=== PATIENT | female | born 1940 | race Caucasian/White ===

== ENCOUNTER 2022-11-22 18:38 | Inpatient (IN) | payer OTHER, SELFPAY ==
[2022-11-22 18:39] VITALS: BP 154/86; PULSE 84; RESP 16; TEMP 36.6; O2SAT 96; BMI 27.5
[2022-11-22 19:08] LABS: Absolute Lymphocyte Count 2.73 X10^3/uL (0.83-4.51); Absolute Neutrophil Count 6.4 X10^3/uL (2.0-7.7); Basophil# 0.05 X10^3/uL; Basophil% 0.5 % (0-1); Eosinophil# 0.11 X10^3/uL; Eosinophils% 1.1 % (0-5); Hematocrit 39.6 % (37-47); Hemoglobin 12.9 g/dL (12.0-15.0); Lymphocyte # 2.73 X10^3/ul (0.83-4.51); Lymphocyte % 27.5 % (19-41); Mean Corp Hgb Conc 32.6 g/dL (32-36); Mean Corpuscular Hgb 31.5 pg (27.0-32.0); Mean Corpuscular Volume 96.8 fL (81-99); Mean Platelet Vol. 9.3 fl (6.2-12.0); Monocyte# 0.63 X10^3/uL; Monocyte% 6.4 % (0-10); NRBC Flagged by Analyzer 0 % (0-5); Neutrophil # 6.37 X10^3/uL (2.7-7.7); Neutrophil % 64.3 % (47-70); Platelet Count 351 K/mm3 (150-450); RBC Distribution Width CV 12.7 % (11.6-14.6); RBC Distribution Width SD 45.2 fl (35.1-43.9); Red Blood Count 4.09 M/mm3 (4.2-5.4); White Blood Count 9.9 K/mm3 (4.4-11.0)
[2022-11-22 19:09] LABS: Bacteria 0 SEEN /hpf (None Seen); Mucous, Urine 0 SEEN /hpf (<or=2+); Red Blood Cells-Urine 0 SEEN /hpf (0-5)
[2022-11-22 19:10] LABS: Color, Urine Yellow (Yellow); Glucose, Dipstick Normal (Normal); Ketone-Dipstick Negative (Negative); Leukocyte Esterase-Dipstick 500 /ul (Negative); Nitrite-Dipstick Negative (Negative); Occult Blood-Urine 10 /ul (Negative); Protein-Dipstick Negative (Negative); Urine Bilirubin Dipstick Negative (Negative); Urine Clarity Clear (Clear); Urine Urobilinogen Normal (Normal); Urine pH 6.5 (5.0 - 8.0)
[2022-11-22 19:17] LABS: Squamous Epithelial Cells - UA 0-5 SEEN /hpf (5-10); White Blood Cells 10-25 SEEN /hpf (0-5)
[2022-11-22 19:20] LABS: Anion Gap 5 (5-15); BUN 17 mg/dL (7-18); Chloride 108 mmol/L (98-107); Creatinine, Serum 0.85 mg/dL (0.55-1.02); EST Glomerular Filtration Rate 68 mL/min (>60); Est Glom Filt Rate - Afr Amer 83 mL/min (>60); Estimated Creatinine Clearance 41.75 ml/min; Glucose 125 mg/dL (74-106); Potassium 4.2 mmol/L (3.5-5.1); Sodium Level 141 mmol/L (136-145)
--- NOTE | 2022-11-22 20:38 | CT_ITS ---
STUDY: CT Abdomen And Pelvis W/ Contrast Injection 11/22/2022 9:21 PM REASON FOR EXAM: Female, 82 years old. LOW ABD PAIN X SEVERAL MONTHS BUT WORSE PAST 3 DAYS,NAUSEA,INTERMITTENT DIARRHEA AND CONSTIPATION HX:COLON CANCER WITH PATIAL COLECTOMY pain pain Individualized dose optimization techniques were used for this CT. COMPARISON: None. TECHNIQUE: CT Abdomen And Pelvis W/ Contrast Injection IV 100mL [id number] FINDINGS: There are atherosclerotic calcifications of visualized coronary arteries. The visualized portions of the heart are within normal limits. Normal liver. There are surgical clips in the gallbladder fossa consistent with a prior cholecystectomy. There is dilation of the common bile duct. A common bile duct stone is not seen. The CBD diameter is 11 mm. Normal spleen. Normal pancreas. Normal bilateral adrenal glands. There are hypodensities in the right kidney. These are consistent for cysts. No follow up required. There are hypodensities in the left kidney. These are consistent for cysts. No follow up required. Normal visualized stomach. There are dilated loops of the small intestine with a non-distended colon consistent with air fluid levels suggesting a partial small bowel obstruction. Colectomy with anastomosis of the mid transverse colon. There is non-visualization of the appendix. Free fluid along the right side of the abdomen. Mass likely thickening of the proximal ascending colon may be a colitis. However, neoplasm should also be considered. This appears to be causing a partial small bowel obstruction. Se 2 IM: 62. There are calcifications of the abdominal aorta. This is consistent for atherosclerotic disease. There is NO abdominal aortic aneurysm. Vascular workup can be obtained based on clinical correlation. Normal inferior vena cava. Subcentimeter mesenteric lymph nodes. Normal urinary bladder. Normal abdominal wall. There are diffuse degenerative changes of the visualized lumbar spine. Degenerative findings of the hips. CT/Abdomen/Pelvis W IV Cont ONLY IMPRESSION: (NOT LISTED IN ORDER OF SIGNIFICANCE) Mass likely thickening of the proximal ascending colon may be a colitis. However, neoplasm should also be considered. This appears to be causing a partial small bowel obstruction. Colonoscopy is recommended. Other findings as above. Electronically Signed: Refugio Carbajal MD at 21:27 EST ,
--- NOTE | 2022-11-22 20:39 | EDS_ITS ---
HPI HPI - GI History of Present Illness Chief Complaint: Abd Pain Informant: patient and family Narrative Narrative: Presents with family with abdominal cramping for the past 3 days with, and spasms. 5 days over the weekend had nausea and vomiting that has resolved. 2 bowel movements a day nonbloody. History of partial colectomy June 2021 for cancer. No chemo. This was done in [place] by Dr. Gongora. Denies urinary symptoms. Denies fevers. Patient's been tolerating oral fluids. Further history, had a colonoscopy in 2019 that was reported normal. Reported she had a partial small bowel obstruction June 2021, attempted colonoscopy at that time unable to pass through therefore surgical resection was performed. They referred to Dr. Manning, reports last seen June of last year. Reported the cancer blood work was elevated, however image studies were negative. Was told if she develops pain and vomiting that cancer could return. Prior similar symptoms: Yes PFSH PFSH Home Medications alprazolam 0.5 mg tablet (Xanax) 0.5 mg PO QHS PRN Anxiety 11/22/22 [History Last Taken Unknown] lithium carbonate 450 mg tablet,extended release 450 mg PO DAILY 11/22/22 [History Last Taken Unknown] Allergy/AdvReac Type Severity Reaction Status Date / Time No Known Allergies Allergy Verified 11/22/22 18:43 Social History Smoking Status: Never smoker ROS ROS ED Constitutional Constitutional ED: Denies chills, fever(s) or sweats Eyes Eyes: Denies change in vision ENT ENT ED: Denies dysphagia or sore throat Cardiovascular Cardiovascular: Denies chest pain, leg edema, palpitations or racing heartbeat Respiratory/Chest Respiratory/Chest: Denies cough, dyspnea or dyspnea on exertion Gastrointestinal Gastrointestinal: Reports abdominal pain; Denies diarrhea, nausea or vomiting Genitourinary Genitourinary ED: Denies dysuria, hematuria or urinary frequency Musculoskeletal Musculoskeletal: Denies back pain, extremity pain or neck pain Integumentary Denies rash or wounds Neurologic Neurologic: Denies headache(s), paresthesias or weakness EXAM Physical Exam Const Vital Signs: 11/22/22 18:39 11/22/22 22:57 11/22/22 23:11 Temperature 98 F 97.9 F Temperature Source Temporal Temporal Pulse Rate 84 73 78 Respiratory Rate 16 16 18 Blood Pressure 154/86 H 175/87 H 161/62 H Blood Pressure Mean 108 116 95 Pulse Ox 96 92 94 Oxygen Delivery Method Room Air Room Air Room Air Positive well nourished and well developed General Appearance ED: well developed and NAD HEENT Reports moist mucous membranes normocephalic and atraumatic Eyes PERRL, EOMs intact bilaterally and conjunctivae normal General Eye ED: Yes normal appearance of both eyes Neck no lymphadenopathy and supple General: Negative for tenderness Chest Wall Chest: Negative for tenderness Resp normal respiratory effort and normal air movement Effort and Inspection: symmetric chest movement; Negative for respiratory distress Cardio regular rate, regular rhythm and no murmurs Peripheral Pulses: pulses 2+ throughout GI normal to inspection, nondistended, normoactive bowel sounds GI Narrative: Mid abdominal tenderness no rebound guarding healed midline lower abdominal scar. Palpation: Negative for guarding or rebound tenderness present Back/Spine no CVA tenderness and no thoracic nor lumbar tenderness Extremity normal to inspection General Extremety ED: Negative for edema or tenderness General Extremity: Negative for edema Neuro oriented x3 and no sensory deficits noted Sensorium / Orientation: awake and alert Skin no rashes or lesions noted and no wounds MDM MDM MDM Narrative Medical decision making narrative: Interventions / MDM: Differential diagnosis: Bowel obstruction, appendicitis, colitis, cancer Diagnosis considered but do not suspect: N/A My EKG interpretation: N/A Imaging independently reviewed and interpreted by myself: CT abdomen pelvis IV contrast transfer partial small bowel obstruction there is thickening in the ascending colon. Per radiology colitis versus cancers. KUB: NG in the stomach region. External documents reviewed: N/A Test considered but not ordered:N/A ED course: Patient declines any pain medicines IV fluids were started. Abdominal labs were normal all. Urine noted leukocytes and white blood cells however she denies any symptoms for UTI urine culture sent. CT scan results concerning for partial small bowel obstruction with colitis versus cancer. She denies fevers. Further discussion with the patient and family she vomited over the weekend she has not eaten much she had a small bowel movement Sunday however his symptoms continued therefore decreased oral intake. With her medical history elevated cancer cells on follow-up, more likely concerns for recurrent cancer causing her small bowel obstruction. I did discuss with on-call surgeon Dr. Jimenez, discussed with him, we will add a CEA level to blood work. He will see the patient in the ED and likely will need admission with colonoscopy. Patient admitted surgery service, discussed with hospitalist, Dr. Falcon for consult for surgery for inpatient managment. Re-evaluation: stable Disposition discussed with patient/family/significant other: Case discussed with consulting clinician: Surgery, Dr. Jimenez, Hospitalist, Dr. Falcon History & Record Review Discussion w/independent historian: Other (Family) Lab Data Attestation: I reviewed the patient's lab results. Labs: Laboratory Results - last 24 hr 11/22/22 11/22/22 11/22/22 18:55 18:55 18:55 WBC 9.9 RBC 4.09 L Hgb 12.9 Hct 39.6 MCV 96.8 MCH 31.5 MCHC 32.6 RDW Std Deviation 45.2 H RDW Coeff of Kobe 12.7 Plt Count 351 MPV 9.3 Immature Gran % (Auto) 0.200 Neut % (Auto) 64.3 Lymph % (Auto) 27.5 [place] % (Auto) 6.4 Eos % (Auto) 1.1 Baso % (Auto) 0.5 Absolute Neuts (auto) 6.4 Absolute Lymphs (auto) 2.73 Nucleated RBC % 0 Sodium 141 Potassium 4.2 Chloride 108 H Carbon Dioxide 28.0 Anion Gap 5 BUN 17 Creatinine 0.85 Estim Creat Clear Calc 41.75 Est GFR (MDRD) Af Amer 83 Est GFR (MDRD) Non-Af 68 BUN/Creatinine Ratio 20.0 Glucose 125 H Calcium 10.0 Total Bilirubin Direct Bilirubin AST ALT Alkaline Phosphatase Total Protein Albumin Globulin Lipase Urine Color Yellow Urine Clarity Clear Urine pH 6.5 Ur Specific [place] 1.010 Urine Protein Negative Urine Glucose (UA) Normal Urine Ketones Negative Urine Occult Blood 10 H Urine Nitrite Negative Urine Bilirubin Negative Urine Urobilinogen Normal Ur Leukocyte Esterase 500 H Urine RBC 0 SEEN Urine WBC 10-25 SEEN Ur Squamous Epith Cells 0-5 SEEN Urine Bacteria 0 SEEN Urine Mucus 0 SEEN 11/22/22 18:55 WBC RBC Hgb Hct MCV MCH MCHC RDW Std Deviation RDW Coeff of Kobe Plt Count MPV Immature Gran % (Auto) Neut % (Auto) Lymph % (Auto) [place] % (Auto) Eos % (Auto) Baso % (Auto) Absolute Neuts (auto) Absolute Lymphs (auto) Nucleated RBC % Sodium Potassium Chloride Carbon Dioxide Anion Gap BUN Creatinine Estim Creat Clear Calc Est GFR (MDRD) Af Amer Est GFR (MDRD) Non-Af BUN/Creatinine Ratio Glucose Calcium Total Bilirubin 0.30 Direct Bilirubin 0.12 AST 27 ALT 28 Alkaline Phosphatase 95 Total Protein 7.3 Albumin 3.6 Globulin 3.7 Lipase 96 Urine Color Urine Clarity Urine pH Ur Specific [place] Urine Protein Urine Glucose (UA) Urine Ketones Urine Occult Blood Urine Nitrite Urine Bilirubin Urine Urobilinogen Ur Leukocyte Esterase Urine RBC Urine WBC Ur Squamous Epith Cells Urine Bacteria Urine Mucus Radiography Diagnostic Testing: Clinical Impression(s) from Imaging Studies Abdomen/Pelvis CT 11/22/22 20:38 IMPRESSION: (NOT LISTED IN ORDER OF SIGNIFICANCE) Mass likely thickening of the proximal ascending colon may be a colitis. However, neoplasm should also be considered. This appears to be causing a partial small bowel obstruction. Colonoscopy is recommended. Other findings as above. Electronically Signed: Refugio Carbajal MD at 21:27 EST , KUB X-Ray 11/22/22 22:55 IMPRESSION: NG tube is in good position the stomach. Electronically Signed: Alhaji Gonzalez MD at 23:14 EST , Discharge Plan Dx/Rx/DC Orders Clinical Impression: Partial small bowel obstruction, Abdominal pain, History of colon cancer Disposition Disposition: Acute Care Hospital [facility]
[2022-11-22] MEDS: 0.9% Normal Saline 1,000 ML 1000 ML IV (20:53)
[2022-11-22 21:00] LABS: AST(SGOT) 27 U/L (15-37); Alanine Aminotransfer ALT/SGPT 28 U/L (13-56); Albumin, Serum 3.6 g/dL (3.2-5.0); Alkaline Phosphatase 95 U/L (45-117); Bilirubin, Direct 0.12 mg/dL (0.00-0.30); Globulin 3.7 g/dL (2.2-4.2); Lipase 96 U/L (73-393); Protein, Total 7.3 g/dL (6.4-8.2)
[2022-11-22] MEDS: Hyoscyamine Sulfate 0.125 MG Tablet SL (21:31)
--- NOTE | 2022-11-22 22:55 | RAD_ITS ---
EXAM: XR ABDOMEN, 1 VIEW CLINICAL INDICATION: NG Insertion TECHNIQUE: Frontal supine view of the abdomen/pelvis. This report was created using [employer] report generation technology. COMPARISON: 11/06/2022. FINDINGS: LOWER THORAX: No acute pathology. GASTROINTESTINAL TRACT: Unremarkable. Non-obstructive. No bowel or stomach distention. ORGANS: Unremarkable as visualized. No organomegaly. No abnormal calcifications. BONES/JOINTS: No acute pathology. SOFT TISSUES: No acute pathology. TUBES, LINES AND DEVICES: NG tube is in good position the stomach. RAD/Abdomen Single View (Portable) IMPRESSION: NG tube is in good position the stomach. Electronically Signed: Alhaji Gonzalez MD at 23:14 EST ,
[2022-11-22 22:57] VITALS: BP 175/87; PULSE 73; RESP 16; O2SAT 92
[2022-11-22 23:11] VITALS: BP 161/62; PULSE 78; RESP 18; TEMP 36.6; O2SAT 94
[2022-11-23] VITALS (7 sets, daily range): BP systolic 135–166; BP diastolic 70–91; PULSE 66–94; RESP 16–18; TEMP 36.4–36.8; O2SAT 94–98; BMI 27.2
--- NOTE | 2022-11-23 00:03 | PCM.HP.STD ---
[facility] - [facility] General Date of Service: 11/23/22 Chief Complaint: Abdominal pain associated nausea and vomiting [facility] Narrative JAAY HAZEL, is a 82 F who presents to [facility] with her family with complaints of several months of abdominal pain, gradual loss of appetite, and nausea and vomiting beginning 11/18/2022. History is provided mostly by patient's children. They state that their mother, in addition to the above symptoms, was not able to have a bowel movement over the weekend and then had worsening pain on 11/20/2022, but was able to experience a bowel movement. They report that her bowel movements have covered the spectrum between constipation, normal, and loose. With the recurrence of her pain, nausea, and vomiting today they decided to seek evaluation. ER work-up was notable for normal CBC, but CT imaging showed evidence of partial small bowel obstruction with thickening of the ascending colon concerning for possible mass. Patient has a history of a left colon mass that was diagnosed after obstructive symptoms approximately 1 year following a screening colonoscopy with Dr. Gongora at [facility]. According to family patient underwent a 7-hour surgery during which a segmental colectomy was performed, but only after several hours of removing scar tissue. Patient repeatedly reports that she recovered quickly and family concur with this assessment. Family states they were told this was either a stage IV or a stage IIId cancer as they report being told different stages by different providers. Family confirms that they were told cancer had spread to the adjacent lymph nodes. With this pathology report, the followed up with Dr. Geronimo of oncology and began an oral chemo regimen, but patient quickly declared intolerance and declined any further treatments. Family recalls being told by Dr. Geronimo that they should be watchful for recurrence which would present as new abdominal pain, nausea, and vomiting. Patient's son states that when she had her recent symptoms he is fearful for this recurrence. Past surgical history includes hysterectomy and oophorectomy, subsequent scar tissue removal, appendectomy, open cholecystectomy, and left segmental colectomy described above. PFSH Home Medications alprazolam 0.5 mg tablet (Xanax) 0.5 mg PO QHS PRN Anxiety 11/22/22 [History Last Taken Unknown] lithium carbonate 450 mg tablet,extended release 450 mg PO DAILY 11/22/22 [History Last Taken Unknown] Allergy/AdvReac Type Severity Reaction Status Date / Time No Known Allergies Allergy Verified 11/22/22 18:43 Social History Smoking Status: Never smoker ROS Constitutional Constitutional: Reports anorexia and weight loss Gastrointestinal Gastrointestinal: Reports abdominal pain, diarrhea, nausea and vomiting; Denies hematochezia or melena Vital Signs Vital Signs Vital Signs: 11/22/22 18:39 11/22/22 22:57 11/22/22 23:11 Temperature 98 F 97.9 F Temperature Source Temporal Temporal Pulse Rate 84 73 78 Respiratory Rate 16 16 18 Blood Pressure 154/86 H 175/87 H 161/62 H Blood Pressure Mean 108 116 95 Pulse Ox 96 92 94 Oxygen Delivery Method Room Air Room Air Room Air Weight Weight: 150 lb 6 oz Body Mass Index (BMI) 27.5 Physical Exam Const alert and oriented x3 Constitutional Narrative: Mild distress when talking about possible cancer recurrence General Appearance: cooperative Resp normal respiratory effort GI GI Narrative: Mild abdominal distention. Well-healed laparotomy incision. Well-healed subcostal incision from open cholecystectomy. Well-healed port site versus drain site incisions in bilateral upper abdominal quadrants. Mildly tender to palpation in the right abdomen. Nasogastric tube with small volume bilious aspirate. Results Lab / Micro Data Result Diagrams: 11/22/22 18:55 11/22/22 18:55 Labs: Laboratory Results - last 24 hr 11/22/22 18:55: WBC 9.9, RBC 4.09 L, Hgb 12.9, Hct 39.6, MCV 96.8, MCH 31.5, MCHC 32.6, RDW Std Deviation 45.2 H, RDW Coeff of Kobe 12.7, Plt Count 351, MPV 9.3, Immature Gran % (Auto) 0.200, Neut % (Auto) 64.3, Lymph % (Auto) 27.5, [place] % (Auto) 6.4, Eos % (Auto) 1.1, Baso % (Auto) 0.5, Absolute Neuts (auto) 6.4, Absolute Lymphs (auto) 2.73, Nucleated RBC % 0 11/22/22 18:55: Sodium 141, Potassium 4.2, Chloride 108 H, Carbon Dioxide 28.0, Anion Gap 5, BUN 17, Creatinine 0.85, Estim Creat Clear Calc 41.75, Est GFR (MDRD) Af Amer 83, Est GFR (MDRD) Non-Af 68, BUN/Creatinine Ratio 20.0, Glucose 125 H, Calcium 10.0 11/22/22 18:55: Urine Color Yellow, Urine Clarity Clear, Urine pH 6.5, Ur Specific [place] 1.010, Urine Protein Negative, Urine Glucose (UA) Normal, Urine Ketones Negative, Urine Occult Blood 10 H, Urine Nitrite Negative, Urine Bilirubin Negative, Urine Urobilinogen Normal, Ur Leukocyte Esterase 500 H, Urine RBC 0 SEEN, Urine WBC 10-25 SEEN, Ur Squamous Epith Cells 0-5 SEEN, Urine Bacteria 0 SEEN, Urine Mucus 0 SEEN 11/22/22 18:55: Total Bilirubin 0.30, Direct Bilirubin 0.12, AST 27, ALT 28, Alkaline Phosphatase 95, Total Protein 7.3, Albumin 3.6, Globulin 3.7, Lipase 96 Radiology Impression Abdomen/Pelvis CT 11/22/22 20:38 IMPRESSION: (NOT LISTED IN ORDER OF SIGNIFICANCE) Mass likely thickening of the proximal ascending colon may be a colitis. However, neoplasm should also be considered. This appears to be causing a partial small bowel obstruction. Colonoscopy is recommended. Other findings as above. Electronically Signed: Refugio Carbajal MD at 21:27 EST , KUB X-Ray 11/22/22 22:55 IMPRESSION: NG tube is in good position the stomach. Electronically Signed: Alhaji Gonzalez MD at 23:14 EST , Assessment & Plan Assessment/Plan (1) Partial small bowel obstruction: (2) History of colon cancer: (3) Abnormal CT scan, colon: PLAN: Plan This is an 82-year-old female who presents with several months of progressive abdominal pain and newly associated nausea, vomiting, and periods of obstipation in the context of prior left segmental colectomy in June 2021 for colon cancer?stage III adenocarcinoma. Patient reportedly initiated oral chemotherapy, but declined further treatments due to intolerance. Family reports that conversations were held with oncology that recurrence was certainly a possibility and at that time they discussed patient would likely choose hospice if this transpired. According to patient's ER work-up, CT imaging suggests possible neoplastic process within the ascending colon secondarily causing a partial small bowel obstruction. I held a lengthy conversation with patient and the family regarding the current situation and the treatment options available. I discussed my reservations about considering further surgery given their reports of a lengthy surgery 2 years ago and now facing a high probability of metastatic cancer after adjuvant therapy was previously declined. Patient suggests that they are concerned about their quality of life and would definitely choose further surgery if they could be guaranteed that their pain would be improved in the long run. I have shared with her that no such guarantees could be made. I have shared with family that surgical options could potentially include resection and reanastomosis versus diversion with ileostomy. I have shared the drawbacks of each. I have discussed that there would be no way of projecting how long patient may have until a potential future recurrence. At this time we have deferred further decisions until the remainder of the family can gather for a conversation about patient's care. Family also suggest that they would be very interested in possibility of a colonoscopy to have a diagnosis on which to base their decision. Neuro: As needed Dilaudid Pulm/CV: Incentive spirometer, aspiration precautions, as needed hydralazine FEN/GI: Monitor daily electrolytes, n.p.o. with NG tube to low intermittent wall suction, tentatively plan for consult to gastroenterology, follow-up CEA level : Leukocyte esterase elevated, but other UA findings not suggestive Heme/ID: No signs of anemia or infection per CBC Endo: No current issues Proph: SCDs and patient should be encouraged to ambulate Dispo: Admit to inpatient with hospitalist consult given patient's age, comorbidities, and potential need for end-of-life care planning
[2022-11-23 00:41] LABS: Magnesium 2.1 mg/dL (1.6-2.6); Phosphorus 3.4 mg/dL (2.5-4.9)
--- NOTE | 2022-11-23 00:55 | PCM.PN.HOSP ---
Reason for Visit Reason for Visit: Diagnoses Partial intestinal obstruction, unspecified as to cause (11/23/22) Abnormal findings on diagnostic imaging of other parts of digestive tract (11/23/22) Personal history of other malignant neoplasm of large intestine (11/23/22) Subjective Subjective Patient is a 89-year-old female with a significant history of bipolar disorder; and left-sided colon cancer status post colectomy who presents emergency department with right lower quadrant pain. Her pain has been on and off for about 2 weeks. Her pain is been progressively worsening. Her pain radiates to her entire abdomen. Associated with her symptoms is nausea and vomiting. Initially patient's was constipated but on the day of presentation patient had 3 bowel movements. Her bowel movements got looser in the course of the day. At the emergency department she had very loose bowel movements. In regard to her left-sided colon cancer patient was referred to Dr. Manning, oncologist for further management. Reportedly refused a chemotherapy . Internal medicine service has been consulted for medical management which includes elevated blood pressure on this presentation. Past surgical history: Colectomy Past Social History: Never smoker. Does not drink alcohol. Family Hx: Cancer Objective Data Objective Data Vital Signs: Vital Signs Temp Pulse Resp BP Pulse Ox O2 Del Method 97.9 F 78 16 161/62 H 94 Room Air 11/22/22 23:11 11/22/22 23:11 11/23/22 00:13 11/22/22 23:11 11/22/22 23:11 11/22/22 23:11 Oxygen Delivery Method Room Air Weight: 68.209 kg Body Mass Index (BMI) 27.5 Intake & Output: Intake and Output for Last 24 Hours 11/21/22 11/22/22 11/23/22 23:59 23:59 23:59 Intake Total 1000 / 1000 Balance 1000 / 1000 Lab / Micro Data Result Diagrams: 11/22/22 18:55 11/22/22 18:55 Labs: Laboratory Results - last 24 hr 11/22/22 18:55: WBC 9.9, RBC 4.09 L, Hgb 12.9, Hct 39.6, MCV 96.8, MCH 31.5, MCHC 32.6, RDW Std Deviation 45.2 H, RDW Coeff of Kobe 12.7, Plt Count 351, MPV 9.3, Immature Gran % (Auto) 0.200, Neut % (Auto) 64.3, Lymph % (Auto) 27.5, [place] % (Auto) 6.4, Eos % (Auto) 1.1, Baso % (Auto) 0.5, Absolute Neuts (auto) 6.4, Absolute Lymphs (auto) 2.73, Nucleated RBC % 0 11/22/22 18:55: Sodium 141, Potassium 4.2, Chloride 108 H, Carbon Dioxide 28.0, Anion Gap 5, BUN 17, Creatinine 0.85, Estim Creat Clear Calc 41.75, Est GFR (MDRD) Af Amer 83, Est GFR (MDRD) Non-Af 68, BUN/Creatinine Ratio 20.0, Glucose 125 H, Calcium 10.0 11/22/22 18:55: Urine Color Yellow, Urine Clarity Clear, Urine pH 6.5, Ur Specific [place] 1.010, Urine Protein Negative, Urine Glucose (UA) Normal, Urine Ketones Negative, Urine Occult Blood 10 H, Urine Nitrite Negative, Urine Bilirubin Negative, Urine Urobilinogen Normal, Ur Leukocyte Esterase 500 H, Urine RBC 0 SEEN, Urine WBC 10-25 SEEN, Ur Squamous Epith Cells 0-5 SEEN, Urine Bacteria 0 SEEN, Urine Mucus 0 SEEN 11/22/22 18:55: Total Bilirubin 0.30, Direct Bilirubin 0.12, AST 27, ALT 28, Alkaline Phosphatase 95, Total Protein 7.3, Albumin 3.6, Globulin 3.7, Lipase 96 11/22/22 18:55: Phosphorus 3.4, Magnesium 2.1 Radiography Diagnostic Testing: Radiology Impression Abdomen/Pelvis CT 11/22/22 20:38 IMPRESSION: (NOT LISTED IN ORDER OF SIGNIFICANCE) Mass likely thickening of the proximal ascending colon may be a colitis. However, neoplasm should also be considered. This appears to be causing a partial small bowel obstruction. Colonoscopy is recommended. Other findings as above. Electronically Signed: Refugio Carbajal MD at 21:27 EST , KUB X-Ray 11/22/22 22:55 IMPRESSION: NG tube is in good position the stomach. Electronically Signed: Alhaji Gonzalez MD at 23:14 EST , Physical Exam Narrative Physical exam: General: Well-nourished, well-developed. Head: Normocephalic, atraumatic, no tenderness Eyes: Vision is grossly intact. EOMI ENT: NG tube in place. No trauma, moist mucous membranes, no rhinorrhea Neck: Nontender, No thyromegaly. CVS: Regular rate and rhythm. S1-S2 present. No murmur, gallop or rub. Respiratory : clear to auscultation bilaterally, chest wall nontender, no wheezing Abdomen: Soft, nontender, nondistended, normal bowel sounds, no masses : Deferred Back: Nontender, no CVA tenderness, no midline spinal tenderness, deformities, step-offs Extremities: Nontender full range of motion, no trauma Skin: Normal color, no trauma, abrasions Neuro: Alert, oriented, cranial nerves II through XII grossly intact. Psychiatry: Normal mood. Normal affect. Not depressed. Not anxious. Assessment & Plan Assessment/Plan (1) Partial small bowel obstruction: (2) Elevated blood pressure reading: PLAN: Plan Abnormal CT scan/partial small bowel obstruction CT of the abdomen pelvis with masslike substance and multiple air-fluid levels. I agree with radiologist interpretation. Radiologist recommended colonoscopy. CBC and BMP is unremarkable. Management by general surgery. Bipolar disorder On home Xanax nightly as needed and lithium as needed. On hold as patient is n.p.o. Ativan nightly as needed ordered; and Ativan every 6 hours as needed ordered for anxiety. Elevated blood pressure the diagnosis of hypertension Pain may be contributing. Aggressive pain control. Hydralazine as needed ordered by general surgery, agrees. DVT prophylaxis SCDs ordered. Charges/Coding Visit Charges Inpatient E&M: 10432 Subs Hosp L2
[2022-11-23] MEDS: 0.9% Normal Saline 1,000 ML 125 ML IV ×4 (01:27→23:18)
[2022-11-23] MEDS: HYDROmorphone 0.5 MG/0.5 ML SYRINGE IV ×3 (01:32→20:48)
[2022-11-23] MEDS: 0.9% Saline Lock 10 ML Syringe IV ×2 (08:40→20:48)
--- NOTE | 2022-11-23 17:52 | CON.PCM.GI_ITS ---
HPI Consult Data Date of Consult: 11/23/22 HPI Narrative Reason for Consultation: Possible colon cancer HPI Narrative: JAYA HAZEL, is a 82 F who presented with family with abdominal cramping for the past 3 days with, and spasms.? She had been complaining of 5 days o nausea and vomiting that has resolved.? She did have 2 bowel movements a day nonbloody.? She has a history of partial colectomy June 2021 for cancer.? She could not tolerate chemotherapy this was done in [place] by Dr. Gongora.? Denies urinary symptoms.? Denies fevers.? Patient's been tolerating oral fluids. She had a colonoscopy in 2019 that was reported normal.? Reported she had a partial small bowel obstruction June 2021, attempted colonoscopy at that time unable to pass through therefore surgical resection was performed.? They referred to Dr. Manning, reports last seen June of last year.? Reported the cancer blood work was elevated, however image studies were negative.? Was told if she develops pain and vomiting that cancer could return. She presented here at [facility] on 11/22/2022 with a partial small bowel obstruction. CT scan of the abdomen pelvis shows some thickening in the right side of the colon along with a surgical anastomosis. Also was seen was a lot of stool throughout the colon. She had a NG tube placed and has been having low to mild output without any bowel movement. I was consulted for the evaluation of a possible right-sided colon cancer. [facility] Medical History (Updated 11/23/22 @ 02:[address] Johnnie Falcon MD) Adenocarcinoma Anxiety Home Medications alprazolam 0.5 mg tablet (Xanax) 0.5 mg PO QHS PRN Anxiety 11/22/22 [History Last Taken 11/21/22] lithium carbonate 450 mg tablet,extended release 450 mg PO QHS anxiety 11/22/22 [History Last Taken 11/21/22] Allergy/AdvReac Type Severity Reaction Status Date / Time No Known Allergies Allergy Verified 11/22/22 18:43 Surgical History (Updated 11/23/22 @ 01:14 by René Mac) History of appendectomy History of hysterectomy S/P cholecystectomy Social History Smoking Status: Never smoker ROS Constitutional Constitutional: Reports anorexia and weight loss Gastrointestinal Gastrointestinal: Reports abdominal pain, diarrhea, nausea and vomiting; Denies hematochezia or melena Physical Exam Narrative Physical exam: General: Well-nourished, well-developed. Head: Normocephalic, atraumatic, no tenderness Eyes: Vision is grossly intact. EOMI ENT: NG tube in place. No trauma, moist mucous membranes, no rhinorrhea Neck: Nontender, No thyromegaly. CVS: Regular rate and rhythm. S1-S2 present. No murmur, gallop or rub. Respiratory : clear to auscultation bilaterally, chest wall nontender, no wheezing Abdomen: Soft, nontender, nondistended, normal bowel sounds, no masses : Deferred Back: Nontender, no CVA tenderness, no midline spinal tenderness, deformities, step-offs Extremities: Nontender full range of motion, no trauma Skin: Normal color, no trauma, abrasions Neuro: Alert, oriented, cranial nerves II through XII grossly intact. Psychiatry: Normal mood. Normal affect. Not depressed. Not anxious. Lab / Micro Data Result Diagrams: 11/22/22 18:55 11/22/22 18:55 Labs: Laboratory Results - last 24 hr 11/22/22 18:55: WBC 9.9, RBC 4.09 L, Hgb 12.9, Hct 39.6, MCV 96.8, MCH 31.5, MCHC 32.6, RDW Std Deviation 45.2 H, RDW Coeff of Kobe 12.7, Plt Count 351, MPV 9.3, Immature Gran % (Auto) 0.200, Neut % (Auto) 64.3, Lymph % (Auto) 27.5, [place] % (Auto) 6.4, Eos % (Auto) 1.1, Baso % (Auto) 0.5, Absolute Neuts (auto) 6.4, Ab solute Lymphs (auto) 2.73, Nucleated RBC % 0 11/22/22 18:55: Sodium 141, Potassium 4.2, Chloride 108 H, Carbon Dioxide 28.0, Anion Gap 5, BUN 17, Creatinine 0.85, Estim Creat Clear Calc 41.75, Est GFR (MDRD) Af Amer 83, Est GFR (MDRD) Non-Af 68, BUN/Creatinine Ratio 20.0, Glucose 125 H, Calcium 10.0 11/22/22 18:55: Urine Color Yellow, Urine Clarity Clear, Urine pH 6.5, Ur Specific [place] 1.010, Urine Protein Negative, Urine Glucose (UA) Normal, Urine Ketones Negative, Urine Occult Blood 10 H, Urine Nitrite Negative, Urine Bilirubin Negative, Urine Urobilinogen Normal, Ur Leukocyte Esterase 500 H, Urine RBC 0 SEEN, Urine WBC 10-25 SEEN, Ur Squamous Epith Cells 0-5 SEEN, Urine Bacteria 0 SEEN, Urine Mucus 0 SEEN 11/22/22 18:55: Total Bilirubin 0.30, Direct Bilirubin 0.12, AST 27, ALT 28, Alkaline Phosphatase 95, Total Protein 7.3, Albumin 3.6, Globulin 3.7, Lipase 96 11/22/22 18:55: Phosphorus 3.4, Magnesium 2.1 Micro: Microbiology 11/22/22 18:55 Urine, Clean Catch Urine Culture - Final Mixed Gram Pos & Gram Neg Org Radiology Impression Abdomen/Pelvis CT 11/22/22 20:38 IMPRESSION: (NOT LISTED IN ORDER OF SIGNIFICANCE) Mass likely thickening of the proximal ascending colon may be a colitis. However, neoplasm should also be considered. This appears to be causing a partial small bowel obstruction. Colonoscopy is recommended. Other findings as above. Electronically Signed: Refugio Carbajal MD at 21:27 EST , KUB X-Ray 11/22/22 22:55 IMPRESSION: NG tube is in good position the stomach. Electronically Signed: Alhaji Gonzalez MD at 23:14 EST , Assessment & Plan Assessment/Plan (1) Partial small bowel obstruction: (2) Elevated blood pressure reading: PLAN: Plan Abnormal CT scan/partial small bowel obstruction CT of the abdomen pelvis with masslike substance and multiple air-fluid levels. Radiologist recommended colonoscopy. CBC and BMP is unremarkable. Recommend to continue enemas as much as possible and we will attempt colonoscopy without the use of a prep due to a possible high-grade small bowel obstruction. Charges/Coding Visit Charges Inpatient E&M: 14794 Init Hosp L2
--- NOTE | 2022-11-23 18:19 | CASEMGMT ---
RN CM NOTE: Initial RN CM assessment deferred at this time, as pt/family discussing possible Hospice. Cleo COVARRUBIASN RN CM
[2022-11-23] MEDS: Electrolyte Solution/Peg's 4000 ML 1000 ML NG (18:20)
[2022-11-24] VITALS (9 sets, daily range): BP systolic 133–166; BP diastolic 64–95; PULSE 82–102; RESP 16–18; TEMP 36.5–37.3; O2SAT 92–97
[2022-11-24] MEDS: 0.9% Saline Lock 10 ML Syringe IV (03:46)
[2022-11-24] MEDS: HYDROmorphone 0.5 MG/0.5 ML SYRINGE IV ×3 (03:46→19:45)
--- NOTE | 2022-11-24 06:00 | EKG12_ITS ---
Test Reason : PRE OP Blood Pressure : / mmHG Vent. Rate : 074 BPM Atrial Rate : 074 BPM P-R Int : 162 ms QRS Dur : 086 ms QT Int : 404 ms P-R-T Axes : 069 021 052 degrees QTc Int : 448 ms Normal sinus rhythm Normal ECG No previous ECGs available Confirmed by GURJIT BLAIR, DUKE ([id number]), videotape editor FELIBERTO GALVEZ ([id number]) on 11/28/2022 8:03:41 AM Referred By: AMBREEN Confirmed By:DUKE CAGLE MD
[2022-11-24] MEDS: 0.9% Normal Saline 1,000 ML 125 ML IV ×2 (06:06→14:02)
[2022-11-24 06:54] LABS: Absolute Lymphocyte Count 1.53 X10^3/uL (0.83-4.51); Absolute Neutrophil Count 8.8 X10^3/uL (2.0-7.7); Basophil# 0.05 X10^3/uL; Basophil% 0.4 % (0-1); Eosinophil# 0.05 X10^3/uL; Eosinophils% 0.4 % (0-5); Hematocrit 37.1 % (37-47); Hemoglobin 11.6 g/dL (12.0-15.0); Lymphocyte # 1.53 X10^3/ul (0.83-4.51); Lymphocyte % 13.4 % (19-41); Mean Corp Hgb Conc 31.3 g/dL (32-36); Mean Corpuscular Hgb 30.9 pg (27.0-32.0); Mean Corpuscular Volume 98.7 fL (81-99); Mean Platelet Vol. 9.4 fl (6.2-12.0); Monocyte# 0.96 X10^3/uL; Monocyte% 8.4 % (0-10); NRBC Flagged by Analyzer 0 % (0-5); Neutrophil # 8.82 X10^3/uL (2.7-7.7); Neutrophil % 77.1 % (47-70); Platelet Count 294 K/mm3 (150-450); RBC Distribution Width CV 12.8 % (11.6-14.6); Red Blood Count 3.76 M/mm3 (4.2-5.4); White Blood Count 11.4 K/mm3 (4.4-11.0)
[2022-11-24 07:24] LABS: Anion Gap 9 (5-15); BUN 13 mg/dL (7-18); BUN/Creat Ratio 22.1 RATIO (10-20); Calcium,Total 8.4 mg/dL (8.5-10.1); Chloride 111 mmol/L (98-107); Creatinine, Serum 0.59 mg/dL (0.55-1.02); EST Glomerular Filtration Rate 105 mL/min (>60); Est Glom Filt Rate - Afr Amer 127 mL/min (>60); Estimated Creatinine Clearance 35.49 ml/min; Glucose 67 mg/dL (74-106); Potassium 4.2 mmol/L (3.5-5.1); Sodium Level 142 mmol/L (136-145)
[2022-11-24 08:29] LABS: Carcinoembryonic Antigen 6.4 ng/mL (0.0-4.7)
--- NOTE | 2022-11-24 11:40 | CASEMGMT ---
DESTINY STORY Assessment: Face to Face with pt for initial transition planning/care coordination assessment. RN JEZ introduced self and role at [facility], pt voices understanding and consents to assessment. Pt is A/O x4 and answers all questions appropriately at this time. Pt sitting up in bed with NG in and multiple family members at bedside. Pt agreeable to assessment in presence of family. Care providers, pharmacy, and demographics verified/updated. Admitting Dx: partial sbo PCP:Cristian Specialists:rupali Manning Preferred Pharmacy: [facility] Retail Insurance: [employer] Prescription Benefit: no LNOK: Sivakumar and Malena Giron, son and dil Living Arrangements: Pt lives with son and dil above in a 3 story home with 3 steps to enter. Pt lives in a home that is connected to her son and dil's. Pt reports being I in ADL's and no use of AD. Pt denies concerns at home. 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 DME/HHC/SNF: Pt denies having any DME in the home, previous HHC or SNF stays. Pt states she is waiting to have an EGD. Will formulate plan after results of this. Pt states no further concerns/needs. CM to follow. Advised pt to ask CM if any further question/concerns/needs arise, voices understanding. Pt Goal: TBD Plan: TBD
--- NOTE | 2022-11-24 14:35 | NURSING ---
PT TO ENDO VIA BED
--- NOTE | 2022-11-24 16:38 | CT_ITS ---
EXAM: CT ABDOMEN AND PELVIS WITH INTRAVENOUS CONTRAST CLINICAL INDICATION: volvulus TECHNIQUE: Helically acquired images were obtained of the abdomen and pelvis with intravenous contrast. This CT exam was performed using one or more of the following dose reduction techniques: automated exposure control, adjustment of the mA and/or kV according to patient size, and/or use of iterative reconstruction technique. This report was created using [employer] report generation technology. CONTRAST: IV 100mL Isovue-370 COMPARISON: 11/22/2022 FINDINGS: LOWER THORAX: There is atelectasis or pneumonia in the right middle lobe. There is trace left basilar atelectasis. No cardiomegaly. No significant pericardial effusion. ABDOMEN: LIVER: Unremarkable. Homogeneous. No focal mass. GALLBLADDER AND BILE DUCTS: Unremarkable. No calcified gallstones. No gallbladder distention or wall edema. No intra- or extrahepatic biliary ductal dilation. PANCREAS: Unremarkable. No focal cystic or solid mass. SPLEEN: Unremarkable. Normal size without focal cystic or solid mass. ADRENALS: Unremarkable. No nodules. KIDNEYS AND URETERS: Unremarkable. Normal renal size and position. No hydronephrosis. STOMACH AND BOWEL: There is persistent thickening of the proximal colon which is unchanged and may represent focal colitis or mass lesion. No stomach or bowel distention. PELVIS: APPENDIX: No evidence of acute appendicitis. BLADDER: Unremarkable. REPRODUCTIVE: Unremarkable as visualized. No mass. ABDOMEN and PELVIS: INTRAPERITONEAL SPACE: There are dilated fluid-filled loops of small bowel which are not significantly changed from the reference examination. There is no free air identified. BONES/JOINTS: Unremarkable. No suspicious lytic or blastic abnormality. SOFT TISSUES: Unremarkable. No discrete abdominal or pelvic wall hernia. VASCULATURE: Unremarkable. Abdominal aorta is non-dilated. LYMPH NODES: Unremarkable. No enlarged lymph nodes. TUBES, LINES AND DEVICES: Nasogastric tube has been placed with the distal tip in the proximal stomach. CT/Abdomen/Pelvis W IV Cont ONLY IMPRESSION: Persistent dilated fluid-filled loops of small bowel which are not significantly changed perhaps minimally decreased from the reference exam. A nasogastric tube is in place with the distal tip in the stomach. There is persistent masslike thickening of the proximal colon which may be the point of obstruction. Persistent atelectasis or pneumonia in the right middle lobe. Overall there has been minimal change from the reference exam. There is no evidence of volvulus. Electronically Signed: Jos Aldana MD at 17:24 EST ,
--- NOTE | 2022-11-24 16:52 | OP.COLON_ITS ---
Patient Name: Lorri Giron Procedure Date: 11/24/2022 3:37 PM Date of : 1940 Age: 82 Procedure: Colonoscopy Indications: Personal history of malignant neoplasm of the colon, Abdominal pain in the right upper quadrant Providers: Avni Guerrero DO Patient Profile: This is an 82 year old female. Refer to note in patient chart for documentation of history and physical. Last Colonoscopy: within the past 3 months. Complications: No immediate complications. Procedure: Pre-Anesthesia Assessment: - Prior to the procedure, a History and Physical was performed, and patient medications and allergies were reviewed. The patient is competent. The risks and benefits of the procedure and the sedation options and risks were discussed with the patient. All questions were answered and informed consent was obtained. Patient identification and proposed procedure were verified by the physician in the pre-procedure area. Mental Status Examination: alert and oriented. Airway Examination: normal oropharyngeal airway and neck mobility. Respiratory Examination: clear to auscultation. CV Examination: normal. Prophylactic Antibiotics: The patient does not require prophylactic antibiotics. Prior Anticoagulants: The patient has taken no previous anticoagulant or antiplatelet agents. After reviewing the risks and benefits, the patient was deemed in satisfactory condition to undergo the procedure. The anesthesia plan was to use monitored anesthesia care (MAC). Immediately prior to administration of medications, the patient was re-assessed for adequacy to receive sedatives. The heart rate, respiratory rate, oxygen saturations, blood pressure, adequacy of pulmonary ventilation, and response to care were monitored throughout the procedure. The physical status of the patient was re-assessed after the procedure. After I obtained informed consent, the scope was passed under direct vision. Throughout the procedure, the patient's blood pressure, pulse, and oxygen saturations were monitored continuously. The pediatric colonoscope was introduced through the anus and advanced to the hepatic flexure. The colonoscopy was extremely difficult due to inadequate bowel prep and restricted mobility of the colon. The patient tolerated the procedure well. No bowel preparation was given prior to the procedure. No bowel preparation was given prior to the procedure. The quality of visualization was poor. Scope In: 3:49:26 PM Scope Withdrawal Time 0 hours 1 minute 47 seconds Scope Out: 4:13:55 PM Total Procedure Duration Time 0 hours 24 minutes 29 seconds Findings: There was evidence of a prior end-to-side colo-colonic anastomosis at the splenic flexure. This was patent and was characterized by healthy appearing mucosa. A suspected volvulus, with viable appearing mucosa, was found at the hepatic flexure. Impression: - Patent end-to-side colo-colonic anastomosis, characterized by healthy appearing mucosa. - Suspected volvulus. - No specimens collected. Recommendation: - [facility]. - NPO. - No recommendation at this time regarding repeat colonoscopy due to age. - Continue present medications. Procedure Code(s): --- Professional --- 40069, 53, Colonoscopy, flexible; diagnostic, including collection of specimen(s) by brushing or washing, when performed (separate procedure) CPT copyright 2017 [employer]. All rights reserved. The codes documented in this report are preliminary and upon audiology doctor review may be revised to meet current compliance requirements. Avni Guerrero DO 11/24/2022 4:52:33 PM This report has been signed electronically. Number of Addenda: 0 Note Initiated On: 11/24/2022 3:37 PM
--- NOTE | 2022-11-24 16:52 | OP.CCLET_ITS ---
11/24/2022 Marco Antonio Foster Re : Colonoscopy procedure for Lorri Giron Dear Cristian This procedure was performed on Thursday, November 24, 2022. My impressions and recommendations are as follows: Impressions : - Patent end-to-side colo-colonic anastomosis, characterized by healthy appearing mucosa. - Suspected volvulus. - No specimens collected. Recommendations : - [facility]. - NPO. - No recommendation at this time regarding repeat colonoscopy due to age. - Continue present medications. My findings are described in the full procedure note, which is enclosed. If I can be of further assistance, please feel free to contact me at . Sincerely, Avni Guerrero, 11/24/2022 4:52:33 PM This report has been signed electronically.
--- NOTE | 2022-11-24 17:22 | PCM.PN.SRG ---
Subjective Subjective Patient was seen and examined during AM rounds. Her daughter and [id number] are both present. They report that Ms. Giron was given a quarter of a GoLytely prep via her nasogastric tube and has had several bowel movements. She reports that these bowel movements are loose and primarily yellow in character with very little solid. She denies any significant abdominal pain. She denies any nausea or vomiting. Objective Data Objective Data Vital Signs: Vital Signs Temp Pulse Resp BP Pulse Ox O2 Del Method 97.8 F 86 16 149/71 H 96 Room Air 11/24/22 16:42 11/24/22 16:42 11/24/22 16:42 11/24/22 16:42 11/24/22 16:42 11/24/22 16:42 Oxygen Delivery Method Room Air Weight: 149 lb 0.52 oz Body Mass Index (BMI) 27.2 Intake & Output: Intake and Output for Last 24 Hours 11/22/22 11/23/22 11/24/22 23:59 23:59 23:59 Intake Total 1000 / 1000 2852.50 / 2852.50 Output Total 500 / 500 0 / 0 Balance 1000 / 1000 2352.50 / 2352.50 Lab / Micro Data Result Diagrams: 11/24/22 06:40 11/24/22 06:40 Labs: Laboratory Results - last 24 hr 11/22/22 22:44: Carcinoembryonic Ag 6.4 H 11/24/22 06:40: WBC 11.4 H, RBC 3.76 L, Hgb 11.6 L, Hct 37.1, MCV 98.7, MCH 30.9, MCHC 31.3 L, RDW Std Deviation 46.0 H, RDW Coeff of Kobe 12.8, Plt Count 294, MPV 9.4, Immature Gran % (Auto) 0.300, Neut % (Auto) 77.1 H, Lymph % (Auto) 13.4 L, [place] % (Auto) 8.4, Eos % (Auto) 0.4, Baso % (Auto) 0.4, Absolute Neuts (auto) 8.8 H, Absolute Lymphs (auto) 1.53, Nucleated RBC % 0 11/24/22 06:40: Sodium 142, Potassium 4.2, Chloride 111 H, Carbon Dioxide 22.0, Anion Gap 9, BUN 13, Creatinine 0.59, Estim Creat Clear Calc 35.49, Est GFR (MDRD) Af Amer 127, Est GFR (MDRD) Non-Af 105, BUN/Creatinine Ratio 22.1 H, Glucose 67 L, Calcium 8.4 L Micro: Microbiology 11/22/22 18:55 Urine, Clean Catch Urine Culture - Final Mixed Gram Pos & Gram Neg Org Physical Exam Const oriented x3 Constitutional Narrative: In good spirits, appreciative Resp normal respiratory effort GI GI Narrative: Mildly distended, very mildly tender to palpation over the right abdominal quadrants. Nasogastric tube in place with mild to moderate output of bilious fluid. Assessment & Plan Assessment/Plan (1) Partial small bowel obstruction: (2) History of colon cancer: (3) Abnormal CT scan, colon: PLAN: Plan This is an 82-year-old female who presents with several months of progressive abdominal pain and newly associated nausea, vomiting, and periods of obstipation in the context of prior left segmental colectomy in June 2021 for colon cancer?stage III adenocarcinoma. Patient reportedly initiated oral chemotherapy, but declined further treatments due to intolerance. Patient was given several enemas yesterday as well as a partial bowel prep with GoLytely via her nasogastric tube in an effort to promote visualization during planned colonoscopy with gastroenterology later today. She tolerated these interventions without issue. She also reports some passage of flatus with her bowel movements. She denies any significant nausea. This is in keeping with her diagnosis of a partial bowel obstruction. She does remain distended on exam. We will plan to await the results of today's endoscopy before making further treatment plans. Neuro: As needed Dilaudid Pulm/CV: Incentive spirometer, aspiration precautions, as needed hydralazine FEN/GI: Monitor daily electrolytes, n.p.o. with NG tube to low intermittent wall suction, awaiting results of colonoscopy with gastroenterology, follow-up CEA level : Leukocyte esterase elevated, but other UA findings not suggestive Heme/ID: No signs of anemia or infection per CBC Endo: No current issues Proph: SCDs and patient should be encouraged to ambulate Dispo: Continue inpatient stay Charges/Coding Visit Charges Inpatient E&M: 29523 Subs Hosp L2
[2022-11-24] MEDS: Dextrose 5%/0.9% NaCl 1,000 ML 75 ML IV (18:10)
--- NOTE | 2022-11-24 19:48 | NURSING ---
This RN called Naldo in pharmacy. Naldo states Cipro and flagyl are compatible with D5NS.
[2022-11-24] MEDS: Ciprofloxacin 400 MG/200 ML BAG 200 MG IV (20:33)
[2022-11-24] MEDS: metroNIDAZOLE 500 MG/100 ML BAG 100 MG IV (22:08)
[2022-11-24 22:35] LABS: Bedside Glucose 124 mg/dL (74-106)
[2022-11-25] MEDS: Ondansetron 4 MG/2 ML Vial IV (02:30)
[2022-11-25 04:45] VITALS: BP 140/67; PULSE 82; RESP 18; TEMP 36.7; O2SAT 92
[2022-11-25] MEDS: metroNIDAZOLE 500 MG/100 ML BAG 100 MG IV ×3 (05:22→22:11)
[2022-11-25] MEDS: Dextrose 5%/0.9% NaCl 1,000 ML 75 ML IV ×2 (05:23→20:45)
[2022-11-25 05:45] LABS: Bedside Glucose 96 mg/dL (74-106)
[2022-11-25 07:12] LABS: Absolute Lymphocyte Count 1.25 X10^3/uL (0.83-4.51); Absolute Neutrophil Count 3.4 X10^3/uL (2.0-7.7); Basophil# 0.02 X10^3/uL; Basophil% 0.4 % (0-1); Eosinophil# 0.08 X10^3/uL; Eosinophils% 1.5 % (0-5); Hematocrit 34.9 % (37-47); Lymphocyte # 1.25 X10^3/ul (0.83-4.51); Lymphocyte % 22.9 % (19-41); Mean Corp Hgb Conc 31.5 g/dL (32-36); Mean Corpuscular Hgb 30.6 pg (27.0-32.0); Mean Corpuscular Volume 97.2 fL (81-99); Monocyte% 12.8 % (0-10); NRBC Flagged by Analyzer 0 % (0-5); Neutrophil % 62.2 % (47-70); Platelet Count 267 K/mm3 (150-450); RBC Distribution Width CV 12.7 % (11.6-14.6); RBC Distribution Width SD 45.4 fl (35.1-43.9); Red Blood Count 3.59 M/mm3 (4.2-5.4); White Blood Count 5.5 K/mm3 (4.4-11.0)
--- NOTE | 2022-11-25 07:39 | PCM.PN.SRG ---
Subjective Subjective Patient had a colonoscopy with Dr. Guerrero yesterday showed some edema as well as some ischemia near the hepatic flexure as well as a narrowing at that area the cecum appeared normal as viewed through the narrowing. CT abdomen pelvis not show any evidence of volvulus. Patient was started on Cipro/Flagyl IV. Patient denies flatus or bowel movement. Objective Data Objective Data Vital Signs: Vital Signs Temp Pulse Resp BP Pulse Ox O2 Del Method 98.1 F 82 18 140/67 H 92 Room Air 11/25/22 04:45 11/25/22 04:45 11/25/22 04:45 11/25/22 04:45 11/25/22 04:45 11/25/22 04:45 Oxygen Delivery Method Room Air Weight: 149 lb 0.52 oz Body Mass Index (BMI) 27.2 Intake & Output: Intake and Output for Last 24 Hours 11/23/22 11/24/22 11/25/22 23:59 23:59 23:59 Intake Total 2852.50 / 2852.50 3136.67 / 3136.67 1001.25 / 1001.25 Output Total 500 / 500 300 / 300 30 / 30 Balance 2352.50 / 2352.50 2836.67 / 2836.67 971.25 / 971.25 Lab / Micro Data Result Diagrams: 11/25/22 06:19 11/25/22 06:19 Labs: Laboratory Results - last 24 hr 11/22/22 22:44: Carcinoembryonic Ag 6.4 H 11/24/22 22:13: POC Glucose 124 H 11/25/22 05:26: POC Glucose 96 11/25/22 06:19: WBC 5.5, RBC 3.59 L, Hgb 11.0 L, Hct 34.9 L, MCV 97.2, MCH 30.6, MCHC 31.5 L, RDW Std Deviation 45.4 H, RDW Coeff of Kobe 12.7, Plt Count 267, MPV 10.0, Immature Gran % (Auto) 0.200, Neut % (Auto) 62.2, Lymph % (Auto) 22.9, [place] % (Auto) 12.8 H, Eos % (Auto) 1.5, Baso % (Auto) 0.4, Absolute Neuts (auto) 3.4, Absolute Lymphs (auto) 1.25, Nucleated RBC % 0 Micro: Microbiology 11/22/22 18:55 Urine, Clean Catch Urine Culture - Final Mixed Gram Pos & Gram Neg Org Radiography Diagnostic Testing: Radiology Impression Abdomen/Pelvis CT 11/24/22 16:38 IMPRESSION: Persistent dilated fluid-filled loops of small bowel which are not significantly changed perhaps minimally decreased from the reference exam. A nasogastric tube is in place with the distal tip in the stomach. There is persistent masslike thickening of the proximal colon which may be the point of obstruction. Persistent atelectasis or pneumonia in the right middle lobe. Overall there has been minimal change from the reference exam. There is no evidence of volvulus. Electronically Signed: Jos Aldana MD at 17:24 EST , Physical Exam Const oriented x3 and no apparent distress Constitutional Narrative: NG in place Resp normal respiratory effort Cardio regular rate GI soft to palpation GI Narrative: Tender to palpation mainly in the right lower/mid quadrant, equivocal rebound, no guarding, mild abdominal distention Assessment & Plan Assessment/Plan (1) Partial small bowel obstruction: (2) History of colon cancer: (3) Abnormal CT scan, colon: PLAN: Plan Discussed with patient, her family also reviewed the CT abdomen pelvis with the patient and family. The CT abdomen pelvis did not show any evidence of volvulus. Question if this is just some ischemic colitis unsure exactly why it occurred we will plan for Cipro Flagyl IV to see if this will possibly improve. Discussed that surgery could still be a possibility if this does not improve with the plan would be for resection however this would likely be very long and involved surgery as her previous surgery was about 7 hours due to adhesions. And patient previously had an open cholecystectomy as well as open appendectomy. Patient and family expressed understanding and no further questions this time. Estella Martinez M.D. Pager: [phone] [facility] [address] [place] [address], [facility], [address] [place] [address] Office: [phone] Charges/Coding Visit Charges Inpatient E&M: 93720 Subs Hosp L2
[2022-11-25 07:46] LABS: Anion Gap 8 (5-15); BUN 8 mg/dL (7-18); BUN/Creat Ratio 13.2 RATIO (10-20); Calcium,Total 7.9 mg/dL (8.5-10.1); Chloride 107 mmol/L (98-107); Creatinine, Serum 0.61 mg/dL (0.55-1.02); EST Glomerular Filtration Rate 101 mL/min (>60); Est Glom Filt Rate - Afr Amer 122 mL/min (>60); Estimated Creatinine Clearance 35.49 ml/min; Glucose 99 mg/dL (74-106); Magnesium 1.5 mg/dL (1.6-2.6); Phosphorus 2.5 mg/dL (2.5-4.9); Potassium 3.4 mmol/L (3.5-5.1); Sodium Level 139 mmol/L (136-145)
[2022-11-25] MEDS: 0.9% Saline Lock 10 ML Syringe IV (08:40)
[2022-11-25] MEDS: HYDROmorphone 0.5 MG/0.5 ML SYRINGE IV (08:40)
[2022-11-25 10:00] VITALS: BP 132/75; PULSE 77; RESP 18; TEMP 37.1; O2SAT 94
--- NOTE | 2022-11-25 10:17 | PCM.PN.HOSP ---
Subjective Subjective Tolerating NG tube with minimal abdominal pain Objective Data Objective Data Vital Signs: Vital Signs Temp Pulse Resp BP Pulse Ox O2 Del Method 98.8 F 77 18 132/75 H 94 Room Air 11/25/22 10:00 11/25/22 10:00 11/25/22 10:00 11/25/22 10:00 11/25/22 10:00 11/25/22 10:00 Oxygen Delivery Method Room Air Weight: 149 lb 0.52 oz Body Mass Index (BMI) 27.2 Intake & Output: Intake and Output for Last 24 Hours 11/24/22 11/25/22 11/26/22 03:59 03:59 03:59 Intake Total 2852.50 / 2852.50 3116.67 / 3116.67 1111.25 / 1111.25 Output Total 500 / 500 300 / 300 30 / 30 Balance 2352.50 / 2352.50 2816.67 / 2816.67 1081.25 / 1081.25 Lab / Micro Data Result Diagrams: 11/25/22 06:19 11/25/22 06:19 Labs: Laboratory Results - last 24 hr 11/24/22 22:13: POC Glucose 124 H 11/25/22 05:26: POC Glucose 96 11/25/22 06:19: WBC 5.5, RBC 3.59 L, Hgb 11.0 L, Hct 34.9 L, MCV 97.2, MCH 30.6, MCHC 31.5 L, RDW Std Deviation 45.4 H, RDW Coeff of Kobe 12.7, Plt Count 267, MPV 10.0, Immature Gran % (Auto) 0.200, Neut % (Auto) 62.2, Lymph % (Auto) 22.9, [place] % (Auto) 12.8 H, Eos % (Auto) 1.5, Baso % (Auto) 0.4, Absolute Neuts (auto) 3.4, Absolute Lymphs (auto) 1.25, Nucleated RBC % 0 11/25/22 06:19: Sodium 139, Potassium 3.4 L, Chloride 107, Carbon Dioxide 24.0, Anion Gap 8, BUN 8, Creatinine 0.61, Estim Creat Clear Calc 35.49, Est GFR (MDRD) Af Amer 122, Est GFR (MDRD) Non-Af 101, BUN/Creatinine Ratio 13.2, Glucose 99, Calcium 7.9 L, Phosphorus 2.5, Magnesium 1.5 L Micro: Microbiology 11/22/22 18:55 Urine, Clean Catch Urine Culture - Final Mixed Gram Pos & Gram Neg Org Radiography Diagnostic Testing: Radiology Impression Abdomen/Pelvis CT 11/24/22 16:38 IMPRESSION: Persistent dilated fluid-filled loops of small bowel which are not significantly changed perhaps minimally decreased from the reference exam. A nasogastric tube is in place with the distal tip in the stomach. There is persistent masslike thickening of the proximal colon which may be the point of obstruction. Persistent atelectasis or pneumonia in the right middle lobe. Overall there has been minimal change from the reference exam. There is no evidence of volvulus. Electronically Signed: Jos Aldana MD at 17:24 EST , Physical Exam Narrative General: Alert, Oriented x3, Cooperative, No apparent distress HEENT: Atraumatic, PERRLA, EOMI, Normocephalic, NG tube Oral: Moist Mucosa Neck: Supple, No JVD Lungs: Diminished, Normal air movement, No rhonchi, No wheeze, No rales Cardiovascular: Regular rate, Regular Rhythm, Normal S1, Normal S2, No murmurs Abdomen: Soft, mild tender right lower quadrant, Non-Distended, No Hepato-splenomegaly Extremities: No edema, Capillary Refill Less than 3 Seconds Skin: No rashes, No breakdown Musculoskeletal: No Tenderness to Palpation of Joints or Extremities Neurological: Cranial nerves II-XII grossly intact, Motor Exam 5/5 strength throughout, Sensory exam intact to light touch and pain Psych/Mental Status: Normal Affect, Appropriate Assessment & Plan Assessment/Plan (1) Partial small bowel obstruction: (2) Elevated blood pressure reading: PLAN: Plan 1. Functional small bowel obstruction ? Colonoscopy performed did not show recurrence of colon cancer a possible mesenteric ischemia ? Continue with IV fluids will change to D5 normal saline as she is continue to be n.p.o. ? Discussed with her goals of care as well as advance care planning options depending on what she decides, she never completed chemotherapy for stage III colon cancer so she is aware that it could recur ? She does not take any chronic medications at home discussed with general surgery, will sign off 2. Bipolar disorder ? We will check a lithium level if stable we will continue to hold her lithium if low may need to clamp the NG tube and restart ? If she has any nighttime anxiety, will transition her to IV Ativan DVT: SCDs Charges/Coding Visit Charges Inpatient E&M: 22414 Subs Hosp L2
[2022-11-25] MEDS: Ciprofloxacin 400 MG/200 ML BAG 200 MG IV ×2 (10:18→20:33)
[2022-11-25 12:06] LABS: Bedside Glucose 149 mg/dL (74-106)
[2022-11-25 13:20] LABS: Lithium < 0.20 mmol/L (0.60-1.20)
[2022-11-25 16:00] VITALS: BP 134/66; PULSE 79; RESP 18; TEMP 36.8; O2SAT 98
[2022-11-25 16:46] LABS: Bedside Glucose 94 mg/dL (74-106)
[2022-11-25 20:32] VITALS: BP 131/63; PULSE 77; RESP 16; TEMP 36.9; O2SAT 94
[2022-11-25] MEDS: LITHIUM CARBONATE 450 MG TABLET.ER PO (20:47)
[2022-11-25 21:45] LABS: Bedside Glucose 115 mg/dL (74-106)
[2022-11-26 02:32] VITALS: BP 136/63; PULSE 72; RESP 16; TEMP 37.1; O2SAT 97
[2022-11-26] MEDS: metroNIDAZOLE 500 MG/100 ML BAG 100 MG IV ×3 (05:42→21:37)
--- NOTE | 2022-11-26 06:41 | NURSING ---
Pt cleaned up for a large liq stool yellowish in color. Ng retaped. placement checked w air bolus
[2022-11-26 07:06] LABS: Bedside Glucose 113 mg/dL (74-106)
--- NOTE | 2022-11-26 08:27 | PCM.PN.SRG ---
Objective Data Objective Data Vital Signs: Vital Signs Temp Pulse Resp BP Pulse Ox O2 Del Method 98.8 F 72 16 136/63 H 97 Room Air 11/26/22 02:32 11/26/22 02:32 11/26/22 02:32 11/26/22 02:32 11/26/22 02:32 11/26/22 02:32 Oxygen Delivery Method Room Air Weight: 149 lb 0.52 oz Body Mass Index (BMI) 27.2 Intake & Output: Intake and Output for Last 24 Hours 11/24/22 11/25/22 11/26/22 23:59 23:59 23:59 Intake Total 3136.67 / 3136.67 2651.25 / 2671.25 240 / 240 Output Total 300 / 300 30 / 130 250 / 250 Balance 2836.67 / 2836.67 2621.25 / 2541.25 -10 / -10 Lab / Micro Data Result Diagrams: 11/25/22 06:19 11/25/22 06:19 Labs: Laboratory Results - last 24 hr 11/25/22 11:19: POC Glucose 149 H 11/25/22 11:20: [place] < 0.20 L 11/25/22 16:15: POC Glucose 94 11/25/22 20:38: POC Glucose 115 H 11/26/22 05:57: POC Glucose 113 H Micro: Microbiology 11/22/22 18:55 Urine, Clean Catch Urine Culture - Final Mixed Gram Pos & Gram Neg Org Assessment & Plan Assessment/Plan (1) Ischemic colitis: (2) Partial small bowel obstruction: (3) History of colon cancer: (4) Abnormal CT scan, colon: PLAN: Plan Continue NG/n.p.o./IV fluids. Continue Cipro and Flagyl IV?patient did have some bowel function, will continue to monitor Continue pain control. Hypomagnesia/hypokalemia?replace Estella Martinez M.D. Pager: [phone] [facility] [place] [facility] [address] [place] [address], [facility], [address] [place] [address] Office: [phone]
[2022-11-26] MEDS: 0.9% Saline Lock 10 ML Syringe IV ×2 (08:28→09:10)
[2022-11-26 08:39] LABS: Absolute Lymphocyte Count 1.45 X10^3/uL (0.83-4.51); Absolute Neutrophil Count 4.2 X10^3/uL (2.0-7.7); Basophil# 0.03 X10^3/uL; Basophil% 0.5 % (0-1); Eosinophil# 0.14 X10^3/uL; Eosinophils% 2.2 % (0-5); Hematocrit 35.1 % (37-47); Hemoglobin 10.9 g/dL (12.0-15.0); Lymphocyte # 1.45 X10^3/ul (0.83-4.51); Lymphocyte % 22.4 % (19-41); Mean Corp Hgb Conc 31.1 g/dL (32-36); Mean Corpuscular Hgb 30.4 pg (27.0-32.0); Mean Corpuscular Volume 97.8 fL (81-99); Mean Platelet Vol. 9.3 fl (6.2-12.0); Monocyte# 0.65 X10^3/uL; NRBC Flagged by Analyzer 0 % (0-5); Neutrophil # 4.19 X10^3/uL (2.7-7.7); Neutrophil % 64.6 % (47-70); Platelet Count 253 K/mm3 (150-450); RBC Distribution Width CV 12.8 % (11.6-14.6); RBC Distribution Width SD 45.8 fl (35.1-43.9); Red Blood Count 3.59 M/mm3 (4.2-5.4); White Blood Count 6.5 K/mm3 (4.4-11.0)
[2022-11-26] MEDS: Magnesium Sulfate 4gm/100mL 4 GM/100 ML IV.SOLN. IV (08:40)
[2022-11-26 08:51] VITALS: BP 136/63; PULSE 72; RESP 18; TEMP 37; O2SAT 92
[2022-11-26 08:52] LABS: Anion Gap 5 (5-15); BUN 4 mg/dL (7-18); BUN/Creat Ratio 7.8 RATIO (10-20); Calcium,Total 8.3 mg/dL (8.5-10.1); Chloride 111 mmol/L (98-107); Creatinine, Serum 0.51 mg/dL (0.55-1.02); EST Glomerular Filtration Rate 122 mL/min (>60); Est Glom Filt Rate - Afr Amer 148 mL/min (>60); Estimated Creatinine Clearance 35.49 ml/min; Glucose 120 mg/dL (74-106); Magnesium 1.4 mg/dL (1.6-2.6); Potassium 3.3 mmol/L (3.5-5.1); Sodium Level 142 mmol/L (136-145)
[2022-11-26] MEDS: HYDROmorphone 0.5 MG/0.5 ML SYRINGE IV (09:10)
[2022-11-26] MEDS: Ciprofloxacin 400 MG/200 ML BAG 200 MG IV ×2 (09:46→21:38)
[2022-11-26 12:16] LABS: Bedside Glucose 123 mg/dL (74-106)
[2022-11-26 14:30] VITALS: BP 130/65; PULSE 70; RESP 18; TEMP 36.5; O2SAT 93
[2022-11-26] MEDS: Dextrose 5%/0.9% NaCl 1,000 ML 75 ML IV (14:48)
[2022-11-26 17:10] LABS: Bedside Glucose 96 mg/dL (74-106)
[2022-11-26] MEDS: LITHIUM CARBONATE 450 MG TABLET.ER PO (21:38)
[2022-11-26 22:00] VITALS: BP 138/85; PULSE 68; RESP 16; TEMP 36.6; O2SAT 94; O2SAT 98
[2022-11-27] MEDS: Dextrose 5%/0.9% NaCl 1,000 ML 75 ML IV ×2 (02:25→14:34)
[2022-11-27] MEDS: HYDROmorphone 0.5 MG/0.5 ML SYRINGE IV ×3 (02:25→22:35)
[2022-11-27 04:00] VITALS: BP 139/69; PULSE 79; RESP 16; TEMP 36.9; O2SAT 94
[2022-11-27] MEDS: metroNIDAZOLE 500 MG/100 ML BAG 100 MG IV ×3 (05:22→21:22)
[2022-11-27 06:40] LABS: Bedside Glucose 98 mg/dL (74-106)
--- NOTE | 2022-11-27 07:49 | PCM.PN.SRG ---
Subjective Subjective Patient seen and examined during AM rounds. She reports that she feels better today and that she is preparing to have another bowel movement. She denies any significant abdominal pain. She expresses hunger. Objective Data Objective Data Vital Signs: Vital Signs Temp Pulse Resp BP Pulse Ox O2 Del Method 98.5 F 79 16 139/69 H 94 Room Air 11/27/22 04:00 11/27/22 04:00 11/27/22 04:00 11/27/22 04:00 11/27/22 04:00 11/27/22 04:00 Oxygen Delivery Method Room Air Weight: 149 lb 0.52 oz Body Mass Index (BMI) 27.2 Intake & Output: Intake and Output for Last 24 Hours 11/25/22 11/26/22 11/27/22 23:59 23:59 23:59 Intake Total 2651.25 / 2671.25 2640.5833 / 2640.5833 991.25 / 991.25 Output Total 30 / 130 350 / 350 225 / 225 Balance 2621.25 / 2541.25 2290.5833 / 2290.5833 766.25 / 766.25 Lab / Micro Data Result Diagrams: 11/26/22 08:19 11/27/22 08:55 Labs: Laboratory Results - last 24 hr 11/26/22 08:19: WBC 6.5, RBC 3.59 L, Hgb 10.9 L, Hct 35.1 L, MCV 97.8, MCH 30.4, MCHC 31.1 L, RDW Std Deviation 45.8 H, RDW Coeff of Kobe 12.8, Plt Count 253, MPV 9.3, Immature Gran % (Auto) 0.300, Neut % (Auto) 64.6, Lymph % (Auto) 22.4, [place] % (Auto) 10.0, Eos % (Auto) 2.2, Baso % (Auto) 0.5, Absolute Neuts (auto) 4.2, Absolute Lymphs (auto) 1.45, Nucleated RBC % 0 11/26/22 08:19: Sodium 142, Potassium 3.3 L, Chloride 111 H, Carbon Dioxide 26.0, Anion Gap 5, BUN 4 L, Creatinine 0.51 L, Estim Creat Clear Calc 35.49, Est GFR (MDRD) Af Amer 148, Est GFR (MDRD) Non-Af 122, BUN/Creatinine Ratio 7.8 L, Glucose 120 H, Calcium 8.3 L, Phosphorus 2.0 L, Magnesium 1.4 L 11/26/22 11:34: POC Glucose 123 H 11/26/22 16:48: POC Glucose 96 11/27/22 05:58: POC Glucose 98 Micro: Microbiology 11/22/22 18:55 Urine, Clean Catch Urine Culture - Final Mixed Gram Pos & Gram Neg Org Physical Exam Const oriented x3 and no apparent distress Resp normal respiratory effort GI GI Narrative: Mild abdominal distention across the bilateral upper quadrants, nontender to palpation, nasogastric tube in place with scant watery output Assessment & Plan Assessment/Plan (1) Partial small bowel obstruction: (2) History of colon cancer: (3) Abnormal CT scan, colon: (4) Ischemic colitis: PLAN: Plan This is an 82-year-old female who presents with several months of progressive abdominal pain and newly associated nausea, vomiting, and periods of obstipation in the context of prior left segmental colectomy in June 2021 for colon cancer?stage III adenocarcinoma. Patient reportedly initiated oral chemotherapy, but declined further treatments due to intolerance. Patient reportedly had a unstimulated bowel movement yesterday and is preparing for a second bowel movement this morning. She expresses hunger. Nasogastric tube output for 24 hours has been 225 mL (including flushes). Given the above, I am inclined to remove her nasogastric tube and perform a diet challenge starting with clear liquid diet without carbonation. Neuro: As needed Dilaudid Pulm/CV: Incentive spirometer, aspiration precautions, as needed hydralazine FEN/GI: Monitor daily electrolytes?replace K, mag, and Phos, NG tube discontinued 11/27/2022, advance to sips of clears, CEA level reviewed today and 6.4 : No acute issues Heme/ID: Continue empiric IV antibiotics pursuing treatment of idiopathic ischemic colitis Endo: Accu-Cheks forrelative hypoglycemia earlier inpatient stay Proph: SCDs and patient should be encouraged to ambulate Dispo: Continue inpatient stay Charges/Coding Visit Charges Inpatient E&M: 85047 Subs Hosp L2
[2022-11-27 09:20] LABS: Anion Gap 6 (5-15); BUN 3 mg/dL (7-18); BUN/Creat Ratio 4.6 RATIO (10-20); Calcium,Total 8.5 mg/dL (8.5-10.1); Chloride 113 mmol/L (98-107); Creatinine, Serum 0.66 mg/dL (0.55-1.02); EST Glomerular Filtration Rate 92 mL/min (>60); Est Glom Filt Rate - Afr Amer 111 mL/min (>60); Estimated Creatinine Clearance 35.49 ml/min; Glucose 119 mg/dL (74-106); Magnesium 1.8 mg/dL (1.6-2.6); Potassium 3.7 mmol/L (3.5-5.1); Sodium Level 145 mmol/L (136-145)
[2022-11-27 10:15] VITALS: BP 141/76; PULSE 71; RESP 16; TEMP 36.9; O2SAT 95
[2022-11-27] MEDS: 0.9% Saline Lock 10 ML Syringe IV (10:18)
[2022-11-27] MEDS: Ciprofloxacin 400 MG/200 ML BAG 200 MG IV ×2 (10:19→21:21)
[2022-11-27 10:40] LABS: Phosphorus 2.5 mg/dL (2.5-4.9)
--- NOTE | 2022-11-27 13:21 | PN_ITS ---
Subjective Subjective Patient seen and examined. She had no complaints. Her daughter was by her bedside. She said her abdominal pain had improved but was still present. She was able to have a bowel movement this morning. She was on clear liquid diet. Review of systems otherwise negative. She has remained hemodynamically stable. Objective Data Objective Data Vital Signs: Vital Signs Temp Pulse Resp BP Pulse Ox O2 Del Method 98.4 F 71 16 141/76 H 95 Room Air 11/27/22 10:15 11/27/22 10:15 11/27/22 10:15 11/27/22 10:15 11/27/22 10:15 11/27/22 10:15 Oxygen Delivery Method Room Air Weight: 149 lb 0.52 oz Body Mass Index (BMI) 27.2 Intake & Output: Intake and Output for Last 24 Hours 11/25/22 11/26/22 11/27/22 23:59 23:59 23:59 Intake Total 2651.25 / 2671.25 2640.5833 / 2640.5833 1301.25 / 1301.25 Output Total 30 / 130 350 / 350 225 / 225 Balance 2621.25 / 2541.25 2290.5833 / 2290.5833 1076.25 / 1076.25 Lab / Micro Data Result Diagrams: 11/26/22 08:19 11/27/22 08:55 Labs: Laboratory Results - last 24 hr 11/26/22 16:48: POC Glucose 96 11/27/22 05:58: POC Glucose 98 11/27/22 08:55: Sodium 145, Potassium 3.7, Chloride 113 H, Carbon Dioxide 26.0, Anion Gap 6, BUN 3 L, Creatinine 0.66, Estim Creat Clear Calc 35.49, Est GFR (MDRD) Af Amer 111, Est GFR (MDRD) Non-Af 92, BUN/Creatinine Ratio 4.6 L, G lucose 119 H, Calcium 8.5, Magnesium 1.8 11/27/22 08:55: Phosphorus 2.5 Micro: Microbiology 11/22/22 18:55 Urine, Clean Catch Urine Culture - Final Mixed Gram Pos & Gram Neg Org Physical Exam Const alert, oriented x3 and no apparent distress HEENT normocephalic, head/scalp atraumatic, moist oral mucous membranes and oropharynx normal Eyes PERRL and EOMs intact bilaterally Neck supple and no JVD Lymph Lymphatic: no lymphadenopathy noted Resp normal respiratory effort, normal air movement and clear to auscultation bilaterally Cardio regular rate, regular rhythm, S1 normal heart sound, S2 normal heart sound and no murmurs GI normal to inspection, nondistended, normoactive bowel sounds and soft to p alpation GI Narrative: minimal tenderness, no guarding or rebound tenderness Extremity normal capillary refill and no clubbing, cyanosis or edema Skin General Skin Exam: no breakdown and turgor normal Neuro CN's II-XII intact bilaterally, no focal motor deficits and no sensory deficits noted Motor Exam: strength 5/5 throughout Psych thought process normal, cooperative and affect normal Assessment & Plan Assessment/Plan (1) Ischemic colitis: (2) Partial small bowel obstruction: (3) Abdominal pain: (4) History of colon cancer: PLAN: Plan #Partial Small bowel obstruction * she is now passing gas and having a bowel movement * s/p colonoscopy which showed some polyps which were removed * general surgery on board * management as perr general surgery * #History of stage III colon cancer * Was diagnosed in June 2021 and had left segmental colectomy. She was initiated on oral chemotherapy but subsequently declined further treatments due to intolerance. * admitted with partial small bowel obstruction. Colonoscopy showed no evidence of obtruction * CEA level is 6.4 * NG tube removed today and now on clear liquid diet. * Colonoscopy during this admission showed patent end-to-end colocolonic anastomosis characterized by healthy-appearing mucosa and suspected volvulus. * #Ischemic colitis: on IV cipro and flagyl to treat ischemic colitis #Bipolar disorder: lithium on hold due to patient having been NPO. Will resume. [place] level was <0.2 DVT prophylaxis: SCDs Charges/Coding Visit Charges Inpatient E&M: 54321 Subs Hosp L2
[2022-11-27 14:23] VITALS: BP 135/74; PULSE 79; RESP 16; TEMP 36.7; O2SAT 93
--- NOTE | 2022-11-27 15:10 | CASEMGMT ---
DESTINY STORY into pt room, pt sitting up in bed talking on the phone with dtr at bedside. Pt states her end plan is to return home but currently she is contemplating having surgery. She is aware the RN JEZ will follow. Pt denies needs.
[2022-11-27 19:11] LABS: Bedside Glucose 107 mg/dL (74-106)
[2022-11-27] MEDS: BENZOCAINE/MENTHOL 1 LOZENGE MUCOUS MEM (20:07)
[2022-11-27] MEDS: LITHIUM CARBONATE 450 MG TABLET.ER PO (21:22)
[2022-11-27 21:27] VITALS: BP 139/76; PULSE 77; RESP 16; TEMP 37.1; O2SAT 97
[2022-11-27 21:37] VITALS: O2SAT 96
[2022-11-28 03:27] VITALS: BP 118/56; PULSE 84; RESP 16; TEMP 36.9; O2SAT 94
[2022-11-28] MEDS: Dextrose 5%/0.9% NaCl 1,000 ML 75 ML IV (05:06)
[2022-11-28] MEDS: metroNIDAZOLE 500 MG/100 ML BAG 100 MG IV ×3 (05:06→22:11)
[2022-11-28 07:10] LABS: Bedside Glucose 103 mg/dL (74-106)
[2022-11-28 07:14] LABS: Anion Gap 6 (5-15); BUN 2 mg/dL (7-18); BUN/Creat Ratio 3.9 RATIO (10-20); Calcium,Total 8.4 mg/dL (8.5-10.1); Chloride 114 mmol/L (98-107); Creatinine, Serum 0.51 mg/dL (0.55-1.02); EST Glomerular Filtration Rate 123 mL/min (>60); Est Glom Filt Rate - Afr Amer 148 mL/min (>60); Estimated Creatinine Clearance 35.49 ml/min; Glucose 121 mg/dL (74-106); Magnesium 1.6 mg/dL (1.6-2.6); Phosphorus 2.7 mg/dL (2.5-4.9); Potassium 3.8 mmol/L (3.5-5.1); Sodium Level 145 mmol/L (136-145)
[2022-11-28 09:27] VITALS: BP 140/90; PULSE 85; RESP 18; TEMP 36.9; O2SAT 92
[2022-11-28] MEDS: Ciprofloxacin 400 MG/200 ML BAG 200 MG IV ×2 (10:37→21:01)
--- NOTE | 2022-11-28 10:38 | PCM.PN.SRG ---
Subjective Subjective Patient seen and examined during AM rounds. Her daughter is at bedside and together the patient and her daughter report ongoing bowel function. Patient states that she feels bloated this morning. She denies any hiccuping, burping, or nausea this morning. She confirms that she had another bowel movement this morning (after having a movement each of the last 2 mornings). She and her daughter expressed anxiety about how they can best ensure she does not develop problems and required readmission. Objective Data Objective Data Vital Signs: Vital Signs Temp Pulse Resp BP Pulse Ox O2 Del Method 98.5 F 85 18 140/90 H 92 Room Air 11/28/22 09:27 11/28/22 09:27 11/28/22 09:27 11/28/22 09:27 11/28/22 09:27 11/28/22 09:27 Oxygen Delivery Method Room Air Weight: 149 lb 0.52 oz Body Mass Index (BMI) 27.2 Intake & Output: Intake and Output for Last 24 Hours 11/26/22 11/27/22 11/28/22 23:59 23:59 23:59 Intake Total 2640.5833 / 2640.5833 3087.50 / 3087.50 1250 / 1250 Output Total 350 / 350 225 / 225 Balance 2290.5833 / 2290.5833 2862.50 / 2862.50 1250 / 1250 Lab / Micro Data Result Diagrams: 11/26/22 08:19 11/28/22 06:42 Labs: Laboratory Results - last 24 hr 11/27/22 08:55: Phosphorus 2.5 11/27/22 18:51: POC Glucose 107 H 11/28/22 06:42: Sodium 145, Potassium 3.8, Chloride 114 H, Carbon Dioxide 25.0, Anion Gap 6, BUN 2 L, Creatinine 0.51 L, Estim Creat Clear Calc 35.49, Est GFR (MDRD) Af Amer 148, Est GFR (MDRD) Non-Af 123, BUN/Creatinine Ratio 3.9 L, Glucose 121 H, Calcium 8.4 L, Phosphorus 2.7, Magnesium 1.6 11/28/22 06:50: POC Glucose 103 Micro: Microbiology 11/22/22 18:55 Urine, Clean Catch Urine Culture - Final Mixed Gram Pos & Gram Neg Org Physical Exam Const oriented x3 and no apparent distress Resp normal respiratory effort GI GI Narrative: Mildly distended (but improved from yesterday), soft, mildly tender to palpation of the right lower abdominal quadrant Assessment & Plan Assessment/Plan (1) Partial small bowel obstruction: (2) History of colon cancer: (3) Abnormal CT scan, colon: (4) Ischemic colitis: PLAN: Plan This is an 82-year-old female who presents with several months of progressive abdominal pain and newly associated nausea, vomiting, and periods of obstipation in the context of prior left segmental colectomy in June 2021 for colon cancer?stage III adenocarcinoma. Patient reportedly initiated oral chemotherapy, but declined further treatments due to intolerance. Patient with further bowel function this morning and appears to be tolerating her diet without too much difficulty?she does admit to some bloating this morning. I suspect she is still resolving a partial obstruction. Therefore I would hold off on advancing her diet at this point, and will reevaluate this afternoon. I held a lengthy conversation with the patient and her daughter regarding the short and long-term care goals. I have stressed to them that I remain uncertain as to the etiology of her obstructive symptoms. I suggest the course of action should include advancing her to at least a full liquid diet that could sustain her, discharging her, and then arranging outpatient follow-up that would include a fully prep colonoscopy with biopsies. I have also tried to elicit her interest in possible adjuvant/palliative chemotherapy as it has been my interpretation of our multiple dialogues that she would not readily consider hospice if clearly faced with a diagnosis of recurrent colon cancer. She and her daughter pledged to discuss this further. Neuro: As needed Dilaudid, add acetaminophen Pulm/CV: Incentive spirometer, aspiration precautions, as needed hydralazine FEN/GI: Monitor daily electrolytes?replace mag, NG tube discontinued 11/27/2022, continue clear liquid diet while patient is feeling bloated, CEA level reviewed (11/23/2022): 6.4 : No acute issues Heme/ID: Continue empiric IV antibiotics pursuing treatment of idiopathic ischemic colitis Endo: Accu-Cheks discontinued Proph: SCDs and patient should be encouraged to ambulate Dispo: Continue inpatient stay Charges/Coding Visit Charges Inpatient E&M: 22308 Subs Hosp L2
--- NOTE | 2022-11-28 11:02 | PN_ITS ---
Subjective Subjective Patient seen and examined. She had no active complaints and had an uneventful night. She denies any fever, chills, chest pain, palpitations, dizziness, nausea, vomiting or diarrhea. Review of systems is otherwise negative. She has remained hemodyamically stable. Objective Data Objective Data Vital Signs: Vital Signs Temp Pulse Resp BP Pulse Ox O2 Del Method 98.5 F 85 18 140/90 H 92 Room Air 11/28/22 09:27 11/28/22 09:27 11/28/22 09:27 11/28/22 09:27 11/28/22 09:27 11/28/22 09:27 Oxygen Delivery Method Room Air Weight: 149 lb 0.52 oz Body Mass Index (BMI) 27.2 Intake & Output: Intake and Output for Last 24 Hours 11/26/22 11/27/22 11/28/22 23:59 23:59 23:59 Intake Total 2640.5833 / 2640.5833 3087.50 / 3087.50 1663.75 / 1663.75 Output Total 350 / 350 225 / 225 Balance 2290.5833 / 2290.5833 2862.50 / 2862.50 1663.75 / 1663.75 Lab / Micro Data Result Diagrams: 11/26/22 08:19 11/28/22 06:42 Labs: Laboratory Results - last 24 hr 11/27/22 18:51: POC Glucose 107 H 11/28/22 06:42: Sodium 145, Potassium 3.8, Chloride 114 H, Carbon Dioxide 25.0, Anion Gap 6, BUN 2 L, Creatinine 0.51 L, Estim Creat Clear Calc 35.49, Est GFR (MDRD) Af Amer 148, Est GFR (MDRD) Non-Af 123, BUN/Creatinine Ratio 3.9 L, Glucose 121 H, Calcium 8.4 L, Phosphorus 2.7, Magnesium 1.6 11/28/22 06:50: POC Glucose 103 Micro: Microbiology 11/22/22 18:55 Urine, Clean Catch Urine Culture - Final Mixed Gram Pos & Gram Neg Org Physical Exam Const alert, oriented x3 and no apparent distress HEENT normocephalic, head/scalp atraumatic, moist oral mucous membranes and oropharynx normal Eyes PERRL and EOMs intact bilaterally Neck supple and no JVD Lymph Lymphatic: no lymphadenopathy noted Resp normal respiratory effort, normal air movement and clear to auscultation bilaterally Cardio regular rate, regular rhythm, S1 normal heart sound, S2 normal heart sound and no murmurs GI normal to inspection, nondistended, normoactive bowel sounds and soft to palpation GI Narrative: minimal tenderness, no guarding or rebound tenderness Extremity normal capillary refill and no clubbing, cyanosis or edema Skin General Skin Exam: no breakdown and turgor normal Neuro CN's II-XII intact bilaterally, no focal motor deficits and no sensory deficits noted Motor Exam: strength 5/5 throughout Psych thought process normal, cooperative and affect normal Assessment & Plan Assessment/Plan (1) Ischemic colitis: (2) Partial small bowel obstruction: (3) Abdominal pain: (4) History of colon cancer: PLAN: Plan #Partial Small bowel obstruction * she did have a bowel movemen today too. * s/p colonoscopy which showed some polyps which were removed * general surgery on board * management as per general surgery * #History of stage III colon cancer * Was diagnosed in June 2021 and had left segmental colectomy. She was initiated on oral chemotherapy but subsequently declined further treatments due to intolerance. * admitted with partial small bowel obstruction. Colonoscopy showed no evidence of obtruction * CEA level is 6.4 * NG tube removed today and now on clear liquid diet. * Colonoscopy during this admission showed patent end-to-end colocolonic anastomosis characterized by healthy-appearing mucosa and suspected volvulus. * #Ischemic colitis: on IV cipro and flagyl to treat ischemic colitis #Bipolar disorder: lithium on hold due to patient having been NPO. Will resume. [place] level was <0.2 DVT prophylaxis: SCDs Charges/Coding Visit Charges Inpatient E&M: 10781 Subs Hosp L2
[2022-11-28 11:05] VITALS: BP 140/90; PULSE 85; RESP 18; TEMP 36.9; O2SAT 92
--- NOTE | 2022-11-28 13:42 | RAD_ITS ---
STUDY: X-RAY - ABDOMEN/PELVIS REASON FOR EXAM: Female, 82 years old. Recent small bowel obstruction. Evaluate bowel gas pattern. TECHNIQUE: Two AP supine views of the abdomen and pelvis. COMPARISON: November 22, 2022. CT of the abdomen and pelvis, November 24, 2022 FINDINGS: Normal visualized lung bases. There are multiple gaseous distended small bowel loops in the central abdomen. Air is seen in the rectum. This appears increased from the previous CT. The NG tube present that on the CT is no longer visualized There is no demonstrated free abdominal air. The visualized liver, spleen and kidneys are grossly normal in size and morphology. Normal soft tissue structures. Normal visualized osseous structures. RAD/Abdomen Single View (Portable) IMPRESSION: Gaseous distention of small bowel loops with minimal air in the rectum. Early or partial small bowel obstruction cannot be ruled out. Electronically Signed: Kenton Stapleton DO at 15:27 EST ,
[2022-11-28] MEDS: Magnesium Sulfate 4gm/100mL 4 GM/100 ML IV.SOLN. IV (14:30)
[2022-11-28 16:01] VITALS: BP 153/80; PULSE 85; RESP 18; TEMP 36.8; O2SAT 94
--- NOTE | 2022-11-28 16:30 | RAD_ITS ---
CLINICAL HISTORY: Female, 82 years old. Small bowel obstruction. PROCEDURE: Gastrografin small bowel follow-through examination. FLUOROSCOPY TIME (if supplied): ( ) minutes/seconds TECHNIQUE: (All elements of maximal sterile barrier technique followed, including US elements as applicable) The patient ingested Gastrografin. Imaging at 6 hours, 12 hours and 24 hours following the injection were obtained. FINDINGS: On the clinical laboratory aide imaging, there is evidence of a dilated small bowel loops. On the 6 hour image, there is evidence of Gastrografin in the colon. Findings suggestive of ileus. RAD/Small Bowel Series Only IMPRESSION: Findings suggestive of ileus of the small bowel. Electronically Signed: Rogelio Vuong MD at 17:17 EST ,
[2022-11-28] MEDS: 0.9% Normal Saline 1,000 ML 75 ML IV (17:19)
[2022-11-28] MEDS: Ondansetron 4 MG/2 ML Vial IV (17:19)
[2022-11-28] MEDS: HYDROmorphone 0.5 MG/0.5 ML SYRINGE IV (18:55)
[2022-11-28] MEDS: LITHIUM CARBONATE 450 MG TABLET.ER PO (22:11)
[2022-11-28 22:12] VITALS: BP 118/67; PULSE 84; RESP 14; TEMP 36.6; O2SAT 93
[2022-11-29] MEDS: HYDROmorphone 0.5 MG/0.5 ML SYRINGE IV (00:33)
[2022-11-29 05:00] VITALS: BP 156/87; PULSE 79; RESP 16; TEMP 36.9; O2SAT 95
[2022-11-29] MEDS: metroNIDAZOLE 500 MG/100 ML BAG 100 MG IV ×3 (06:03→21:19)
[2022-11-29] MEDS: 0.9% Normal Saline 1,000 ML 75 ML IV ×2 (06:04→17:39)
[2022-11-29 06:31] LABS: Absolute Lymphocyte Count 1.65 X10^3/uL (0.83-4.51); Absolute Neutrophil Count 4.2 X10^3/uL (2.0-7.7); Basophil# 0.03 X10^3/uL; Basophil% 0.5 % (0-1); Eosinophil# 0.16 X10^3/uL; Eosinophils% 2.4 % (0-5); Hematocrit 35.7 % (37-47); Hemoglobin 11.2 g/dL (12.0-15.0); Lymphocyte # 1.65 X10^3/ul (0.83-4.51); Mean Corp Hgb Conc 31.4 g/dL (32-36); Mean Corpuscular Hgb 30.4 pg (27.0-32.0); Mean Platelet Vol. 9.6 fl (6.2-12.0); Monocyte# 0.58 X10^3/uL; Monocyte% 8.8 % (0-10); NRBC Flagged by Analyzer 0 % (0-5); Neutrophil # 4.16 X10^3/uL (2.7-7.7); Platelet Count 223 K/mm3 (150-450); RBC Distribution Width SD 46.4 fl (35.1-43.9); Red Blood Count 3.68 M/mm3 (4.2-5.4); White Blood Count 6.6 K/mm3 (4.4-11.0)
[2022-11-29 07:09] LABS: Anion Gap 5 (5-15); BUN 3 mg/dL (7-18); BUN/Creat Ratio 4.9 RATIO (10-20); Calcium,Total 8.5 mg/dL (8.5-10.1); Chloride 114 mmol/L (98-107); Creatinine, Serum 0.61 mg/dL (0.55-1.02); EST Glomerular Filtration Rate 100 mL/min (>60); Est Glom Filt Rate - Afr Amer 121 mL/min (>60); Estimated Creatinine Clearance 35.49 ml/min; Glucose 107 mg/dL (74-106); Magnesium 1.9 mg/dL (1.6-2.6); Phosphorus 3.1 mg/dL (2.5-4.9); Potassium 3.7 mmol/L (3.5-5.1); Sodium Level 143 mmol/L (136-145)
[2022-11-29 07:51] VITALS: BP 150/83; PULSE 77; RESP 18; TEMP 36.8; O2SAT 92
[2022-11-29] MEDS: Ciprofloxacin 400 MG/200 ML BAG 200 MG IV ×2 (10:22→21:25)
--- NOTE | 2022-11-29 11:45 | PN_ITS ---
Subjective Subjective Patient seen and examined. She had no complaints this morning. She is still having bowel movements. She had an uneventful night. Review of systems is otherwise negative. She has remained hemodynamically stable. Objective Data Objective Data Vital Signs: Vital Signs Temp Pulse Resp BP Pulse Ox O2 Del Method 98.2 F 77 18 150/83 H 92 Room Air 11/29/22 07:51 11/29/22 07:51 11/29/22 07:51 11/29/22 07:51 11/29/22 07:51 11/29/22 07:51 Oxygen Delivery Method Room Air Weight: 149 lb 0.52 oz Body Mass Index (BMI) 27.2 Intake & Output: Intake and Output for Last 24 Hours 11/27/22 11/28/22 11/29/22 23:59 23:59 23:59 Intake Total 3087.50 / 3087.50 3680.00 / 3880.00 1610 / 1610 Output Total 225 / 225 200 / 200 400 / 400 Balance 2862.50 / 2862.50 3480.00 / 3680.00 1210 / 1210 Lab / Micro Data Result Diagrams: 11/29/22 06:15 11/29/22 06:15 Labs: Laboratory Results - last 24 hr 11/29/22 06:15: WBC 6.6, RBC 3.68 L, Hgb 11.2 L, Hct 35.7 L, MCV 97.0, MCH 30.4, MCHC 31.4 L, RDW Std Deviation 46.4 H, RDW Coeff of Kobe 13.0, Plt Count 223, MPV 9.6, Immature Gran % (Auto) 0.300, Neut % (Auto) 63.0, Lymph % (Auto) 25.0, [place] % (Auto) 8.8, Eos % (Auto) 2.4, Baso % (Auto) 0.5, Absolute Neuts (auto) 4.2, Absolute Lymphs (auto) 1.65, Nucleated RBC % 0 11/29/22 06:15: Sodium 143, Potassium 3.7, Chloride 114 H, Carbon Dioxide 24.0, Anion Gap 5, BUN 3 L, Creatinine 0.61, Estim Creat Clear Calc 35.49, Est GFR (MDRD) Af Amer 121, Est GFR (MDRD) Non-Af 100, BUN/Creatinine Ratio 4.9 L, Glucose 107 H, Calcium 8.5, Phosphorus 3.1, Magnesium 1.9 Micro: Microbiology 11/22/22 18:55 Urine, Clean Catch Urine Culture - Final Mixed Gram Pos & Gram Neg Org Radiography Diagnostic Testing: Radiology Impression KUB X-Ray 11/28/22 13:42 IMPRESSION: Gaseous distention of small bowel loops with minimal air in the rectum. Early or partial small bowel obstruction cannot be ruled out. Electronically Signed: Kenton Stapleton, at 15:27 EST Reading Location ID and State: [address] [place] [address] Tel [phone], Service support , Physical Exam Const alert, oriented x3 and no apparent distress HEENT normocephalic, head/scalp atraumatic, moist oral mucous membranes and oropharynx normal Eyes PERRL and EOMs intact bilaterally Neck supple and no JVD Lymph Lymphatic: no lymphadenopathy noted Resp normal respiratory effort, normal air movement and clear to auscultation bilaterally Cardio regular rate, regular rhythm, S1 normal heart sound, S2 normal heart sound and no murmurs GI normal to inspection, nondistended, normoactive bowel sounds and soft to palpation Extremity normal capillary refill, no clubbing, cyanosis or edema and no calf tenderness Skin General Skin Exam: no breakdown and turgor normal Neuro CN's II-XII intact bilaterally, no focal motor deficits and no sensory deficits noted Motor Exam: strength 5/5 throughout Psych thought process normal, cooperative and affect normal Assessment & Plan Assessment/Plan (1) Ischemic colitis: (2) Partial small bowel obstruction: (3) Abdominal pain: (4) History of colon cancer: PLAN: Plan #Partial Small bowel obstruction * she again had a bowel movement today. * s/p colonoscopy which showed some polyps which were removed * general surgery on board * management as per general surgery * #History of stage III colon cancer * Was diagnosed in June 2021 and had left segmental colectomy. She was initiated on oral chemotherapy but subsequently declined further treatments due to intolerance. * admitted with partial small bowel obstruction. Colonoscopy showed no evidence of obstruction * CEA level is 6.4 * NG tube removed today and now on clear liquid diet. * Colonoscopy during this admission showed patent end-to-end colocolonic anastomosis characterized by healthy-appearing mucosa and suspected volvulus. * Patient and her daughter today tell me that they had a discussion with the general surgeon Dr. Jimenez who recommended possible conservative management versus patient going home on a full liquid diet and then coming back subsequently for repeat scope. Patient and her family wish to have a family meeting with Dr Jimenez tomorrow to discuss the goals of care * #Ischemic colitis: on IV cipro and flagyl to treat ischemic colitis #Bipolar disorder: on lithium. DVT prophylaxis: SCDs Charges/Coding Visit Charges Inpatient E&M: 53487 Subs Hosp L2
--- NOTE | 2022-11-29 14:15 | PCM.PN.SRG ---
Subjective Subjective Patient was seen and examined during AM rounds. She reports some initial nausea following ingestion of the contrast for her small bowel series, but since that time has remained without nausea, burping, or hiccuping. She confirms a bowel movement overnight and is feeling that another one was coming this morning. She denies any significant abdominal pain. Objective Data Objective Data Vital Signs: Vital Signs Temp Pulse Resp BP Pulse Ox O2 Del Method 98.2 F 77 18 150/83 H 92 Room Air 11/29/22 07:51 11/29/22 07:51 11/29/22 07:51 11/29/22 07:51 11/29/22 07:51 11/29/22 07:51 Oxygen Delivery Method Room Air Weight: 149 lb 0.52 oz Body Mass Index (BMI) 27.2 Intake & Output: Intake and Output for Last 24 Hours 11/27/22 11/28/22 11/29/22 23:59 23:59 23:59 Intake Total 3087.50 / 3087.50 3680.00 / 3880.00 1810 / 1810 Output Total 225 / 225 200 / 200 400 / 400 Balance 2862.50 / 2862.50 3480.00 / 3680.00 1410 / 1410 Lab / Micro Data Result Diagrams: 11/29/22 06:15 11/30/22 05:32 Labs: Laboratory Results - last 24 hr 11/29/22 06:15: WBC 6.6, RBC 3.68 L, Hgb 11.2 L, Hct 35.7 L, MCV 97.0, MCH 30.4, MCHC 31.4 L, RDW Std Deviation 46.4 H, RDW Coeff of [place] 13.0, Plt Count 223, MPV 9.6, Immature Gran % (Auto) 0.300, Neut % (Auto) 63.0, Lymph % (Auto) 25.0, [place] % (Auto) 8.8, Eos % (Auto) 2.4, Baso % (Auto) 0.5, Absolute Neuts (auto) 4.2, Absolute Lymphs (auto) 1.65, Nucleated RBC % 0 11/29/22 06:15: Sodium 143, Potassium 3.7, Chloride 114 H, Carbon Dioxide 24.0, Anion Gap 5, BUN 3 L, Creatinine 0.61, Estim Creat Clear Calc 35.49, Est GFR (MDRD) Af Amer 121, Est GFR (MDRD) Non-Af 100, BUN/Creatinine Ratio 4.9 L, Glucose 107 H, Calcium 8.5, Phosphorus 3.1, Magnesium 1.9 Micro: Microbiology 11/22/22 18:55 Urine, Clean Catch Urine Culture - Final Mixed Gram Pos & Gram Neg Org Radiography Diagnostic Testing: Radiology Impression KUB X-Ray 11/28/22 13:42 IMPRESSION: Gaseous distention of small bowel loops with minimal air in the rectum. Early or partial small bowel obstruction cannot be ruled out. Electronically Signed: Kenton Pieter, DO at 15:27 EST Reading Location ID and State: [facility] / [place] Tel [phone], Service support , Physical Exam Const oriented x3 Resp normal respiratory effort GI GI Narrative: Mild abdominal distention across the upper abdominal quadrants. Soft, mild tenderness with palpation on the right lower abdominal quadrant. Assessment & Plan Assessment/Plan (1) Partial small bowel obstruction: (2) History of colon cancer: (3) Abnormal CT scan, colon: (4) Ischemic colitis: PLAN: Plan This is an 82-year-old female who presents with several months of progressive abdominal pain and newly associated nausea, vomiting, and periods of obstipation in the context of prior left segmental colectomy in June 2021 for colon cancer?stage III adenocarcinoma. Patient reportedly initiated oral chemotherapy, but declined further treatments due to intolerance. Patient with evidence of contrast transit to the colon by 12 hours and her small bowel series. She also confirms additional bowel function. 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 Based on this observation, patient was reinitiated on clear liquid diet. I do think it is in her best interest to try to advance her to a full liquid diet and improve her nutrition as we pursue further diagnostic testing to try to determine the etiology of her issues. As part of this I would like to plan for an outpatient colonoscopy with biopsy and have again discussed the possibility of a oncology referral so that pet imaging and a conversation around adjuvant/palliative chemotherapy might be held. Patient and her [id number] expressed interest in this plan and we will plan to proceed along these lines Neuro: As needed Dilaudid, add acetaminophen Pulm/CV: Incentive spirometer, aspiration precautions, as needed hydralazine FEN/GI: Monitor daily electrolytes, NG tube discontinued 11/27/2022, resume clears without carbonation and add Ensure clears, CEA level reviewed (11/23/2022): 6.4 : No acute issues Heme/ID: Continue empiric IV antibiotics pursuing treatment of idiopathic ischemic colitis Endo: Accu-Cheks discontinued Proph: SCDs and patient should be encouraged to ambulate Dispo: Continue inpatient stay
[2022-11-29 14:31] VITALS: BP 138/74; PULSE 73; RESP 18; TEMP 36.8; O2SAT 94
[2022-11-29] MEDS: Ensure Clear 120 ML Liquid PO (14:38)
[2022-11-29] MEDS: LITHIUM CARBONATE 450 MG TABLET.ER PO (21:21)
[2022-11-29 21:34] VITALS: BP 146/70; PULSE 70; RESP 16; TEMP 36.6; O2SAT 95
[2022-11-30] MEDS: metroNIDAZOLE 500 MG/100 ML BAG 100 MG IV ×3 (05:35→21:38)
[2022-11-30 05:43] VITALS: BP 148/80; PULSE 76; RESP 18; TEMP 36.6; O2SAT 95
[2022-11-30 06:05] LABS: Anion Gap 6 (5-15); BUN 3 mg/dL (7-18); BUN/Creat Ratio 4.8 RATIO (10-20); Calcium,Total 8.6 mg/dL (8.5-10.1); Chloride 114 mmol/L (98-107); Creatinine, Serum 0.62 mg/dL (0.55-1.02); EST Glomerular Filtration Rate 98 mL/min (>60); Est Glom Filt Rate - Afr Amer 118 mL/min (>60); Estimated Creatinine Clearance 35.49 ml/min; Glucose 101 mg/dL (74-106); Magnesium 1.5 mg/dL (1.6-2.6); Phosphorus 2.6 mg/dL (2.5-4.9); Potassium 3.8 mmol/L (3.5-5.1); Sodium Level 145 mmol/L (136-145)
[2022-11-30] MEDS: 0.9% Normal Saline 1,000 ML 75 ML IV ×2 (06:54→21:38)
[2022-11-30] MEDS: Magnesium Sulfate 4gm/100mL 4 GM/100 ML IV.SOLN. IV (09:36)
[2022-11-30 11:00] VITALS: BP 138/78; PULSE 72; RESP 18; TEMP 36.4; O2SAT 94
--- NOTE | 2022-11-30 12:19 | PN_ITS ---
Subjective Subjective Patient seen and examined. Daughter was by her bedside. She had no active complaints and had an uneventful night. She states she has not been eating much and she was told by the surgeon this morning that she needs to eat some more in order for her to be able to go home. Patient and family meeting with surgery l memo today to discuss goals of care. He has remained hemodynamically stable. Objective Data Objective Data Vital Signs: Vital Signs Temp Pulse Resp BP Pulse Ox O2 Del Method 97.8 F 76 18 148/80 H 95 Room Air 11/30/22 05:43 11/30/22 05:43 11/30/22 05:43 11/30/22 05:43 11/30/22 05:43 11/30/22 07:49 Oxygen Delivery Method Room Air Weight: 149 lb 0.52 oz Body Mass Index (BMI) 27.2 Intake & Output: Intake and Output for Last 24 Hours 11/28/22 11/29/22 11/30/22 23:59 23:59 23:59 Intake Total 3680.00 / 3880.00 3318.75 / 3318.75 1093.75 / 1093.75 Output Total 200 / 200 400 / 400 Balance 3480.00 / 3680.00 2918.75 / 2918.75 1093.75 / 1093.75 Lab / Micro Data Result Diagrams: 11/29/22 06:15 11/30/22 05:32 Labs: Laboratory Results - last 24 hr 11/30/22 05:32: Sodium 145, Potassium 3.8, Chloride 114 H, Carbon Dioxide 25.0, Anion Gap 6, BUN 3 L, Creatinine 0.62, Estim Creat Clear Calc 35.49, Est GFR (MDRD) Af Amer 118, Est GFR (MDRD) Non-Af 98, BUN/Creatinine Ratio 4.8 L, Glucose 101, Calcium 8.6, Phosphorus 2.6, Magnesium 1.5 L Micro: Microbiology 11/22/22 18:55 Urine, Clean Catch Urine Culture - Final Mixed Gram Pos & Gram Neg Org Radiography Diagnostic Testing: Radiology Impression Small Bowel X-Ray 11/28/22 16:30 IMPRESSION: Findings suggestive of ileus of the small bowel. Electronically Signed: Rogelio Vuong MD at 17:17 EST , Physical Exam Const alert, oriented x3 and no apparent distress HEENT normocephalic, head/scalp atraumatic, moist oral mucous membranes and oropharynx normal Eyes PERRL and EOMs intact bilaterally Neck supple and no JVD Lymph Lymphatic: no lymphadenopathy noted Resp normal respiratory effort, normal air movement and clear to auscultation bilaterally Cardio regular rate, regular rhythm, S1 normal heart sound, S2 normal heart sound and no murmurs GI normal to inspection, nondistended, normoactive bowel sounds and soft to palpation Extremity normal capillary refill, no clubbing, cyanosis or edema and no calf tenderness Skin General Skin Exam: no breakdown and turgor normal Neuro CN's II-XII intact bilaterally, no focal motor deficits and no sensory deficits noted Motor Exam: strength 5/5 throughout Psych thought process normal, cooperative and affect normal Assessment & Plan Assessment/Plan (1) Ischemic colitis: (2) Partial small bowel obstruction: (3) Abdominal pain: (4) History of colon cancer: PLAN: Plan #Partial Small bowel obstruction * Largely resolved. Patient now having regular bowel movements. * s/p colonoscopy which showed some polyps which were removed * general surgery on board * management as per general surgery * #History of stage III colon cancer * Was diagnosed in June 2021 and had left segmental colectomy. She was initiated on oral chemotherapy but subsequently declined further treatments due to intolerance. * admitted with partial small bowel obstruction. Colonoscopy showed no evidence of obstruction * CEA level is 6.4 * NG tube removed today and now on clear liquid diet. * Colonoscopy during this admission showed patent end-to-end colocolonic anastomosis characterized by healthy-appearing mucosa and suspected volvulus. * Patient and her daughter today tell me that they had a discussion with the general surgeon Dr. Jimenez who recommended possible conservative management versus patient going home on a full liquid diet and then coming back subsequently for repeat scope. Patient and her family wish to have a family meeting with Dr Jimenez tomorrow to discuss the goals of care * #Ischemic colitis: remains on IV cipro and flagyl to treat ischemic colitis #Bipolar disorder: on lithium. DVT prophylaxis: SCDs Disposition: Stable from hospitalist standpoint for discharge home. Charges/Coding Visit Charges Inpatient E&M: 22194 Subs Hosp L2
[2022-11-30] MEDS: 0.9% Saline Lock 10 ML Syringe IV (13:06)
[2022-11-30] MEDS: Ciprofloxacin 400 MG/200 ML BAG 200 MG IV ×2 (13:06→21:38)
[2022-11-30] MEDS: Ensure Clear 120 ML Liquid PO ×3 (13:27→21:38)
--- NOTE | 2022-11-30 13:38 | PCM.PN.SRG ---
Subjective Subjective Patient seen and examined during AM rounds. She expresses displeasure when she understands that I am not able to stick around so that her family can ask their questions. Otherwise she denies any significant nausea, vomiting, belching overnight. She also confirms that she has had additional bowel movements. She reports that she has had some small blood clots with these past bowel movements. When asked about advancing her diet and her interest in this, she reports that she is having some abdominal pain at the moment, but when this is revisited she states that she would like to try it. Objective Data Objective Data Vital Signs: Vital Signs Temp Pulse Resp BP Pulse Ox O2 Del Method 97.8 F 76 18 148/80 H 95 Room Air 11/30/22 05:43 11/30/22 05:43 11/30/22 05:43 11/30/22 05:43 11/30/22 05:43 11/30/22 07:49 Oxygen Delivery Method Room Air Weight: 149 lb 0.52 oz Body Mass Index (BMI) 27.2 Intake & Output: Intake and Output for Last 24 Hours 11/28/22 11/29/22 11/30/22 23:59 23:59 23:59 Intake Total 3680.00 / 3880.00 3318.75 / 3318.75 1093.75 / 1093.75 Output Total 200 / 200 400 / 400 Balance 3480.00 / 3680.00 2918.75 / 2918.75 1093.75 / 1093.75 Lab / Micro Data Result Diagrams: 11/29/22 06:15 11/30/22 05:32 Labs: Laboratory Results - last 24 hr 11/30/22 05:32: Sodium 145, Potassium 3.8, Chloride 114 H, Carbon Dioxide 25.0, Anion Gap 6, BUN 3 L, Creatinine 0.62, Estim Creat Clear Calc 35.49, Est GFR (MDRD) Af Amer 118, Est GFR (MDRD) Non-Af 98, BUN/Creatinine Ratio 4.8 L, Glucose 101, Calcium 8.6, Phosphorus 2.6, Magnesium 1.5 L Micro: Microbiology 11/22/22 18:55 Urine, Clean Catch Urine Culture - Final Mixed Gram Pos & Gram Neg Org Radiography Diagnostic Testing: Radiology Impression Small Bowel X-Ray 11/28/22 16:30 IMPRESSION: Findings suggestive of ileus of the small bowel. Electronically Signed: Rogelio Vuong MD at 17:17 EST , Physical Exam Const oriented x3 and no apparent distress Resp normal respiratory effort GI GI Narrative: Mildly distended, soft, minimally tender to palpation in the right abdominal quadrants. Assessment & Plan Assessment/Plan (1) Partial small bowel obstruction: (2) History of colon cancer: (3) Abnormal CT scan, colon: (4) Ischemic colitis: PLAN: Plan This is an 82-year-old female who presents with several months of progressive abdominal pain and newly associated nausea, vomiting, and periods of obstipation in the context of prior left segmental colectomy in June 2021 for colon cancer?stage III adenocarcinoma. Patient reportedly initiated oral chemotherapy, but declined further treatments due to intolerance. Patient with evidence of contrast transit to the colon by 12 hours and her small bowel series. Radiology read this as consistent with possible ileus. However, my suspicion remains with that of a chronic partial small bowel obstruction. Ms. Giron appears to be tolerating her clear liquid diet and I do think it is in her best interest to try to advance her to a full liquid diet and improve her nutrition as we pursue further diagnostic testing to try to determine the etiology of her issues. As part of this I would like to plan for an outpatient colonoscopy with biopsy and have again discussed the possibility of a oncology referral so that pet imaging and a conversation around adjuvant/palliative chemotherapy might be held. This general plan was communicated once again to patient's [id number] (not the same as yesterday) who is at bedside. We also discussed trying to arrange a family meeting later this afternoon so that everyone is brought under the same understanding when Ms. Giron is hopefully able to return home. Neuro: As needed Dilaudid, add acetaminophen Pulm/CV: Incentive spirometer, aspiration precautions, as needed hydralazine FEN/GI: Monitor daily electrolytes?replace magnesium, NG tube discontinued 11/27/2022, advance to full liquid diet with Ensure compact and monitor for tolerance, CEA level reviewed (11/23/2022): 6.4 : No acute issues Heme/ID: Continue empiric IV antibiotics pursuing treatment of idiopathic ischemic colitis Endo: Accu-Cheks discontinued Proph: SCDs and patient should be encouraged to ambulate Dispo: Continue inpatient stay Charges/Coding Visit Charges Inpatient E&M: 25046 Subs Hosp L2
--- NOTE | 2022-11-30 13:40 | NS ---
Discontinued Ensure Clear with meals since it was ordered by MD with medpass. Increased with medpass to 4x daily. Gabrielle Britt RD, LD
--- NOTE | 2022-11-30 15:25 | CASEMGMT ---
Social Work MD Hernández informed during morning rounds that pt will be meeting with Dr. Jimenez today to determine course of action fo treatment. SW has been following case for potential referral to Hospice. SW in to pt room to offer support. Pt receiving delivery from [facility] [email or web address] and SW took gift into room and gave to pt. SW inquired about any support that could be offered to family or any social work needs that could be addressed. Pt informed there are no social work needs at this time. SW encouraged pt to follow up with SW for any further needs or concerns. GE Hess
[2022-11-30 17:15] VITALS: BP 129/60; PULSE 76; RESP 18; TEMP 37.2; O2SAT 96
[2022-11-30 20:30] VITALS: BP 136/82; PULSE 77; RESP 16; TEMP 36.7; O2SAT 97
[2022-11-30] MEDS: LITHIUM CARBONATE 450 MG TABLET.ER PO (21:37)
[2022-12-01 06:28] VITALS: BP 151/81; PULSE 68; RESP 16; TEMP 37; O2SAT 95
[2022-12-01] MEDS: metroNIDAZOLE 500 MG/100 ML BAG 100 MG IV (06:32)
[2022-12-01 08:10] VITALS: BP 143/73; PULSE 75; RESP 18; TEMP 36.8; O2SAT 98
[2022-12-01] MEDS: Ciprofloxacin 500 MG Tablet PO (10:04)
[2022-12-01] MEDS: Ensure Clear 120 ML Liquid PO ×2 (10:04→14:24)
[2022-12-01] MEDS: Nystatin Powder 15gm Bottle 1 APPLIC TOPICAL (10:08)
--- NOTE | 2022-12-01 12:09 | PN_ITS ---
Subjective Subjective Patient seen and examined. She had no complaints today. She had an uneventful night. Review of systems otherwise negative. She has remained hemodynamically stable. Objective Data Objective Data Vital Signs: Vital Signs Temp Pulse Resp BP Pulse Ox O2 Del Method 98.2 F 75 18 143/73 H 98 Room Air 12/01/22 08:10 12/01/22 08:10 12/01/22 08:10 12/01/22 08:10 12/01/22 08:10 12/01/22 09:13 Oxygen Delivery Method Room Air Weight: 149 lb 0.52 oz Body Mass Index (BMI) 27.2 Intake & Output: Intake and Output for Last 24 Hours 11/29/22 11/30/22 12/01/22 23:59 23:59 23:59 Intake Total 3318.75 / 3318.75 3583.75 / 3583.75 950 / 950 Output Total 400 / 400 Balance 2918.75 / 2918.75 3583.75 / 3583.75 950 / 950 Lab / Micro Data Result Diagrams: 11/29/22 06:15 11/30/22 05:32 Micro: Microbiology 11/22/22 18:55 Urine, Clean Catch Urine Culture - Final Mixed Gram Pos & Gram Neg Org Physical Exam Const alert, oriented x3 and no apparent distress HEENT normocephalic, head/scalp atraumatic, moist oral mucous membranes and oropharynx normal Eyes PERRL and EOMs intact bilaterally Neck supple and no JVD Lymph Lymphatic: no lymphadenopathy noted Resp normal respiratory effort, normal air movement and clear to auscultation bilaterally Cardio regular rate, regular rhythm, S1 normal heart sound, S2 normal heart sound and no murmurs GI normal to inspection, nondistended, normoactive bowel sounds and soft to palpation Extremity normal capillary refill, no clubbing, cyanosis or edema and no calf tenderness Skin General Skin Exam: no breakdown and turgor normal Neuro CN's II-XII intact bilaterally, no focal motor deficits and no sensory deficits noted Motor Exam: strength 5/5 throughout Psych thought process normal, cooperative and affect normal Assessment & Plan Assessment/Plan (1) Ischemic colitis: (2) Partial small bowel obstruction: (3) Abdominal pain: (4) History of colon cancer: PLAN: Plan #Partial Small bowel obstruction * resolved. Patient now having regular bowel movements. * s/p colonoscopy which showed some polyps which were removed * general surgery on board * management as per general surgery * #History of stage III colon cancer * Was diagnosed in June 2021 and had left segmental colectomy. She was initiated on oral chemotherapy but subsequently declined further treatments due to intolerance. * admitted with partial small bowel obstruction. Colonoscopy showed no evidence of obstruction * CEA level is 6.4 * Colonoscopy during this admission showed patent end-to-end colocolonic anastomosis characterized by healthy-appearing mucosa and suspected volvulus. * on full liquid diet per general surgery; urged to increase oral intake, then for likely dc today * #Ischemic colitis: remains on IV cipro and flagyl to treat ischemic colitis #Bipolar disorder: on lithium. DVT prophylaxis: SCDs Disposition: Stable from hospitalist standpoint for discharge home. Charges/Coding Visit Charges Inpatient E&M: 96870 Subs Hosp L2
[2022-12-01] MEDS: metroNIDAZOLE 500 MG Tablet PO (14:24)
--- NOTE | 2022-12-01 16:05 | CASEMGMT ---
RN CM into pt room, pt states she is going home today. Pt ambulating in halls earlier. Pt denies any homegoing needs and is excited to dc.
--- NOTE | 2022-12-01 16:08 | DCINST_ITS ---
Discharge Instructions Diet Discharge Diet: - (Full Liquid, low fiber) Activity Discharge Activity: May Shower Dressing / Incision Call your doctor if you observe: Inability to have a bowel movement, Prolonged hiccupping and - (nausea/vomiting) Follow Up Care Please Follow Up With: Alhaji Jimenez MD When: 1 week post discharge Test Results: Test results from this visit will be discussed in further detail at your follow- up appointment, if applicable. Discharge Plan Admission Admit Date/Time: 11/23/22 00:09 Primary Reason for Your Visit: Partial bowel obstruction Attending Provider: Alhaji Jimenez Primary Care Provider: Marco Antonio Foster Consulting Providers: Sheridan Hernández Discharge Orders/Prescriptions Prescriptions: New metronidazole 500 mg Tablet 500 mg PO TID 7 Days Qty: 21 0RF ciprofloxacin HCl 500 mg Tablet 500 mg PO BID 7 Days Qty: 14 0RF Continued lithium carbonate 450 mg Tablet Extended Release 450 mg PO QHS alprazolam [Xanax] 0.5 mg Tablet 0.5 mg PO QHS PRN (Reason: Anxiety) Referrals / Follow Up: Marco Antonio Foster DO [Primary Care Provider] - Disposition Disposition (needs filled in before D/C Order can be placed): Home, Self Care
--- NOTE | 2022-12-01 16:13 | DS.PCM_ITS ---
Providers Date of Admission: 11/23/22 Primary Care Physician: Dr. Marco Antonio Foster, DO Consultations 11/23/22 10:58 Consult: Gastroenterology Routine Consulting Provider: [facility] Reason for Consult: Ascending colonic mass EMERGENT Consult: No MD Notified: Yes Date Notified: 11/23/22 Time Notified: 10:58 Method of Notification: Verbal Reason For Visit: PARTIAL SMALL BOWEL OBSTRUCTION Diagnosis Discharge Diagnosis (1) Ischemic colitis: Status: Acute Code(s): K55.9 - Vascular disorder of intestine, unspecified (2) Partial small bowel obstruction: Status: Acute Code(s): K56.600 - Partial intestinal obstruction, unspecified as to cause (3) Abdominal pain: Status: Acute Code(s): R10.9 - Unspecified abdominal pain (4) History of colon cancer: Status: Acute Code(s): Z85.038 - Personal history of other malignant neoplasm of large intestine Plan This is an 82-year-old female who presents with several months of progressive abdominal pain and newly associated nausea, vomiting, and periods of obstipation in the context of prior left segmental colectomy in June 2021 for colon cancer?stage III adenocarcinoma. Patient reportedly initiated oral chemotherapy, but declined further treatments due to intolerance. Patient with evidence of contrast transit to the colon by 12 hours and her small bowel series. Radiology read this as consistent with possible ileus. However, my suspicion remains with that of a chronic partial small bowel obstruction. Ms. Giron appears to be tolerating her clear liquid diet and I do think it is in her best interest to try to advance her to a full liquid diet and improve her nutrition as we pursue further diagnostic testing to try to determine the etiology of her issues. As part of this I would like to plan for an outpatient colonoscopy with biopsy and have again discussed the possibility of a oncology referral so that pet imaging and a conversation around adjuvant/palliative chemotherapy might be held. This general plan was communicated once again to julianne guajardo's [id number] (not the same as yesterday) who is at bedside. We also discussed trying to arrange a family meeting later this afternoon so that everyone is brought under the same understanding when Ms. Giron is hopefully able to return home. Neuro: As needed Dilaudid, add acetaminophen Pulm/CV: Incentive spirometer, aspiration precautions, as needed hydralazine FEN/GI: Monitor daily electrolytes?replace magnesium, NG tube discontinued 11/27/2022, advance to full liquid diet with Ensure compact and monitor for tolerance, CEA level reviewed (11/23/2022): 6.4 : No acute issues Heme/ID: Continue empiric IV antibiotics pursuing treatment of idiopathic ischemic colitis Endo: Accu-Cheks discontinued Proph: SCDs and patient should be encouraged to ambulate Dispo: Continue inpatient stay Medications at Discharge Home Medications alprazolam 0.5 mg tablet (Xanax) 0.5 mg PO QHS PRN Anxiety 11/22/22 lithium carbonate 450 mg tablet,extended release 450 mg PO QHS anxiety 11/22/22 ciprofloxacin HCl 500 mg tablet 500 mg PO BID 1 week #14 tabs 12/01/22 metronidazole 500 mg tablet 500 mg PO TID 1 week #21 tabs 12/01/22 Hospital Course Operations None Procedures Colonoscopy (Performed 11/24/[address] Guerrero) Summary of Care Provided Minutes Spent on Discharge: 20 Hospital Course: Patient is an 82-year-old female who is admitted to the hospital on 11/23/2022 after an ER presentation late the evening of 11/22/2022 for signs and symptoms of a bowel obstruction. CT imaging at that time had shown a masslike thickening versus colitis of the cecum. Given that her presentation was for obstructive symptoms, nasogastric tube was inserted and she will underwent conservative management with decompression and an n.p.o. status. She experienced a bit of intermittent bowel activity and given her history of a prior palliative colonic resection for colon cancer, I requested a GI consultation for consideration of a diagnostic colonoscopy. Several enemas were administered on 11/23/2022 as well as a partial prep via her nasogastric tube. She then underwent a diagnostic colonoscopy with Dr. Guerrero on 11/24/2022. At the time of this scoping, gastroenterology noted significant tortuosity within the cecum and abnormal mucosal appearance concerning for ischemia. Assimilating these observations, patient was referred for stat CT imaging of the abdomen pelvis out of concern for possible volvulus event. However, this imaging was fully consistent with her index CT imaging and did not demonstrate this diagnosis. With the ischemic appearance to the colon at colonoscopy, decision was made to begin conservative management of ischemic colitis with empiric antibiotic therapy. Ultimately Mrs. Giron did begin to experience more regular bowel function and her nasogastric tube aspirate decreased so her tube was discontinued on 11/27/2022. As I tried to advance her diet beyond a clear liquid diet, she began to have more bloating so I instead ordered a small bowel series. While this demonstrated dilated loops of small intestine, her contrast transit time was only slightly increased and we observed contrast entering the colon at 6 hours post administration. With this reassuring result, I reinstituted her clear liquid diet. So at this time I had 1 of several meetings with her family to discuss goals of care and management. I shared with them that my impression of our interactions was that we might be best served pursuing a conservative course of treatment. This is based on review of her operative report from July 23, 2021 at [facility] which details multiple hours of lysis of adhesions and described a largely frozen abdomen with scar tissue. Both patient and family were receptive of my recommendations and we were successful to advance her to a full liquid diet on 11/30/2022 with tolerance proven at 3 mealtimes prior to electing discharge. Patient was instructed to maintain a full liquid diet (a full liquid diet guide was provided) upon discharge and asked to follow-up within 1 week of hospital discharge. Additional tentative plans were discussed for arranging a outpatient colonoscopy with biopsy several weeks from discharge as well as a referral to oncology for possible pet imaging and discussions around possible adjuvan t/palliative chemotherapy. Physical Exam Const alert, oriented x3 and no apparent distress GI GI Narrative: Minimally distended, soft, nontender to palpation x4 quadrants Weight / BMI Weight Weight: 149 lb 0.52 oz Body Mass Index (BMI) 27.2 ABG / Lab / Microbiology Data Result Diagrams: 11/29/22 06:15 11/30/22 05:32 Microbiology: Microbiology 11/22/22 18:55 Urine, Clean Catch Urine Culture - Final Mixed Gram Pos & Gram Neg Org D/C Instructions Discharge Diet: - (Full Liquid, low fiber) Call your doctor if you observe: Inability to have a bowel movement, Prolonged hiccupping and - (nausea/vomiting) Please Follow Up With: Alhaji Jimenez MD When: 1 week post discharge Meaningful Use Info Meaningful Use Diagnoses (Choose all that apply): None applicable Discharge Plan Admission Admit Date/Time: 11/23/22 00:09 Primary Reason for Your Visit: Partial bowel obstruction Attending Provider: Alhaji Jimenez Primary Care Provider: Marco Antonio Foster Consulting Providers: Sheridan Hernández Discharge Orders/Prescriptions Prescriptions: New metronidazole 500 mg Tablet 500 mg PO TID 7 Days Qty: 21 0RF ciprofloxacin HCl 500 mg Tablet 500 mg PO BID 7 Days Qty: 14 0RF Continued lithium carbonate 450 mg Tablet Extended Release 450 mg PO QHS alprazolam [Xanax] 0.5 mg Tablet 0.5 mg PO QHS PRN (Reason: Anxiety) Referrals / Follow Up: Marco Antonio Foster DO [Primary Care Provider] - Disposition Disposition (needs filled in before D/C Order can be placed): Home, Self Care
[2022-12-01 16:39] VITALS: BP 139/68; PULSE 84; RESP 18; TEMP 36.3; O2SAT 96
== END 2022-12-01 17:32 | disposition home or self-care (01) | DRG 389 ==
LOC: ED 23:12 → MS3 11-23 00:14
PROVIDERS: Family Medicine; Internal Medicine Gastroenterology; Physician Assistant; Student in an Organized Health Care Education/Training Program; Surgery; Admitting Provider Surgery; Emergency Provider Emergency Medicine; PCP Family Medicine; Visit Provider Surgery
PROC: 0DJD8ZZ Inspection of Lower Intestinal Tract, Via Natural or Artificial Opening Endoscopic (ICD-10-PCS; CPT 45378; principal; 2022-11-24 16:25)
DX: K56.600 Partial intestinal obstruction, unspecified as to cause (principal); K55.9 Vascular disorder of intestine, unspecified; C18.6 Malignant neoplasm of descending colon; F31.9 Bipolar disorder, unspecified; E87.6 Hypokalemia; F41.9 Anxiety disorder, unspecified; R03.0 Elevated blood-pressure reading, without diagnosis of hypertension; Z79.899 Other long term (current) drug therapy; Z90.49 Acquired absence of other specified parts of digestive tract
CPT/HCPCS: 36415; 74018; 74177; 74250; 80048; 80076; 80178; 81001; 82378; 82962; 83690; 83735; 84100; 85025; 87086; 87088; 93005; 94668; 99285; J7030; J7040; J7050; Q9967; A4216; J0744; J2405

== ENCOUNTER → 2022-12-22 | Outpatient (CLI) | payer SELFPAY ==
--- NOTE | 2022-12-22 10:15 | RAD_ITS ---
STUDY: X-RAY - ABDOMEN/PELVIS REASON FOR EXAM: Female, 82 years old. Abdominal pain . No bowel movements for 2 days. TECHNIQUE: AP supine and upright views of the abdomen and pelvis. COMPARISON: Comparison is made with prior study November 28, 2022. FINDINGS: Normal visualized lung bases. There are dilated loops of the small intestine with a non-distended colon consistent with a small bowel obstruction. There is no demonstrated free abdominal air. The visualized liver, spleen and kidneys are grossly normal in size and morphology. Normal soft tissue structures. Normal visualized osseous structures. RAD/Abd Inc Decub and/or Erect IMPRESSION: Dilated small bowel loops with air-fluid levels in keeping with a small bowel obstruction. Fecal material is seen in the splenic flexure. Electronically Signed: Rogelio Vuong MD at 14:15 EDT ,
== END | disposition home or self-care (01) ==
PROVIDERS: PCP Family Medicine; Referring Provider Surgery; Visit Provider Surgery
DX: K56.0 Paralytic ileus (principal)
CPT/HCPCS: 74019